=== PATIENT | male | born 1955 | race Caucasian/White ===

== ENCOUNTER 2020-01-04 09:03 | Outpatient (CLI) | payer MEDICARE, MEDICAID, SELFPAY ==
[2020-01-04 09:51] LABS: Basophils Absolute Auto 0.1 K/mm3 (0.0-0.1); Basophils Percent Auto 0.6 % (0.2-1.2); Eosinophils Absolute Auto 0.1 K/mm3 (0-0.3); Eosinophils Percent Auto 0.6 % (0-4.4); Hematocrit 51.4 % (42.0-52.0); Hemoglobin 16.8 g/dL (14.0-18.0); Immature Granulocyte Absolute 0.03 K/mm3 (0.00-0.031); Immature Granulocyte Percent A 0.2 % (0-0.5); Lymphocytes Absolute Auto 1.69 K/mm3 (0.9-3.2); Lymphocytes Percent Auto 13.9 % (18.3-44.2); Mean Corpuscular HGB Conc 32.7 g/dl (32-36); Mean Corpuscular Hemoglobin 30.1 pg (26-34); Mean Corpuscular Volume 91.9 fl (80-100); Mean Platelet Volume 11.3 fl (7.4-10.4); Monocytes Absolute Auto 0.9 K/mm3 (0.1-0.6); Monocytes Percent Auto 7.1 % (2.6-8.5); Neutrophils Absolute Auto 9.4 K/mm3 (1.3-6.7); Neutrophils Percent Auto 77.6 % (45.5-73.1); Platelet Count Result 270 k/mm3 (150-375); Red Blood Count 5.59 M/mm3 (4.6-6.20); Red Cell Distribution Width 13.5 % (11.5-14.5); White Blood Count 12.2 K/mm3 (4.5-10.0)
[2020-01-07 14:20] LABS: Testosterone Free 185.4 pg/mL (35.0-155.0); Testosterone Total 1212 ng/dL (250-1100)
== END 2020-01-04 09:04 | disposition home or self-care (01) ==
PROVIDERS: PCP Internal Medicine; Visit Provider Internal Medicine
DX: Z51.81 Encounter for therapeutic drug level monitoring (principal); Z79.899 Other long term (current) drug therapy
CPT/HCPCS: 36415; 84402; 84403; 85025

== ENCOUNTER 2020-01-12 05:42 | Observation (INO) | payer MEDICARE, MEDICAID, SELFPAY ==
[2020-01-12] VITALS (8 sets, daily range): BP systolic 127–177; BP diastolic 62–86; PULSE 64–95; RESP 16–20; TEMP 36.3–38.1; O2SAT 95–97; BMI 30.7
--- NOTE | ~2020-01-12 | XR_ITS ---
EXAMINATION: XR hand LT 2V DATE: 01/12/2020 06:09 INDICATION: Left hand and wrist swelling. Fall. TECHNIQUE: 3 views of left hand were obtained. COMPARISON: None. FINDINGS: Bone alignment is normal. No fracture. There is moderate osteoarthritis of triscaphe joint and severe osteoarthritis of first carpometacarpal joint. There is mild osteoarthritis of first, seco nd, and third metacarpophalangeal joints, third proximal interphalangeal joint, and second through fi fth distal interphalangeal joints. IMPRESSION: 1. Polyarticular osteoarthritis. Reviewed, dictated and finalized at location A.
--- NOTE | ~2020-01-12 | XR_ITS ---
EXAMINATION: XR chest 2V DATE: 01/12/2020 10:18 INDICATION: Fever. TECHNIQUE: Frontal and lateral views of the chest were obtained. COMPARISON: Chest 2 views 08/19/2018, chest CT 06/26/2019 FINDINGS: The chest demonstrates clear lungs without pneumonia, pleural effusion, or pneumothorax. Th e heart size is normal. Epidural electrodes overlie thoracic spine. There is mild chronic anterior we dging of multiple mid thoracic vertebral bodies. IMPRESSION: 1. No acute cardiopulmonary disease. Reviewed, dictated and finalized at location A.
--- NOTE | 2020-01-12 06:45 | ED.UPPEXIN ---
HPI - Extremity Injury (Upper) General Chief Complaint: Extremity Injury, Upper Stated Complaint: L hand pain Time Seen by Provider: 01/12/20 06:11 History of Present Illness HPI narrative: Patient is a 64-year-old male who presents ER with left wrist pain. 2 nights ago patient was walking when he tripped and caught himself during a fall. He grabbed/struck a handrail. Patient had no symptoms at that time. The next day he woke up and reports that he felt some mild discomfort in his left wrist with range of motion. Over the last 24 hours patient has had significant increase in pain and significant decrease in range of motion. No fevers or chills. No history of gout. Unsure if he has osteoarthritis, no history of gout. He has been taking oxycodone as well as his fentanyl patch without relief of his pain. Has not tried any anti-inflammatory medication. Patient reports some tingling in his fingers but no overt numbness Related Data Home Medications Medication Instructions Recorded Confirmed fentanyl 75 mcg/hr transdermal 1 patch TRANSDERM Q72H 07/20/19 01/12/20 patch cetirizine 10 mg tablet 10 mg PO DAILY PRN 01/11/20 01/12/20 naloxone [Narcan] INTRANASAL 01/12/20 oxycodone 10 mg PO QID 01/12/20 01/12/20 Allergies Allergy/AdvReac Type Severity Reaction Status Date / Time No Known Allergies Allergy Verified 01/12/20 07:50 Review of Systems Review of Systems: All systems reviewed & are unremarkable except as noted in HPI and below Constitutional: Constitutional: Denies chills, Denies fever(s) and Denies weakness Musculoskeletal: Musculoskeletal: Denies myalgias, Reports arthralgias and Reports joint swelling Integumentary/Breasts: Skin/Breast: Denies pruritus and Denies erythema Neurologic: Denies focal weakness, Denies numbness and Reports tingling PMFSH Past Medical History Medical History (Updated 01/12/20 @ 16:38 by Alex Grimm MD) Anemia COPD (chronic obstructive pulmonary disease) Depression Encounter for monitoring testosterone replacement therapy Erectile dysfunction Hyperlipidemia Hypertension Low testosterone in male Pseudogout of left wrist Septic arthritis of wrist, left Swelling of joint, wrist, left Surgical History Surgical History H/O foot surgery H/O neck surgery H/O shoulder surgery History of back surgery S/P foot surgery, right Family History Family History (Updated 01/12/20 @ 15:04 by Cely Vallejo NP) Grandparent Diabetes mellitus Sibling Family history of cardiovascular disease Mother Family history of primary malignant neoplasm of liver Alcoholism Father Alcoholism Other Family history of alcoholism Family history of attention deficit hyperactivity disorder (ADHD) Family history of rheumatoid arthritis Hypertension Social History Social History (Updated 01/12/20 @ 15:06 by Cely Vallejo NP) Social History: The patient stated that he lives with his . He desires to be a full code. His is his durable power attorney at law for healthcare. Patient is on disability for his neck and his back. He has 2 children. Patient used to drink heavily but no longer drinks. Patient still continues to smoke a pack a cigarettes a day for the last 40 years. He stated that he does have a nicotine patch on at this time. Smoking packs per day: 1 Smoking cigarettes per day: 20.0 Years smoked: 40 Smoking pack-years: 40.00 Smoking status: Heavy tobacco smoker Tobacco type: cigarettes Second hand tobacco smoke exposure: Yes Alcohol intake: never Substance use: never Substance use type: does not use Living arrangements: with family Occupation/Education: other Gender identity (if verbalized by the patient): Male Spiritual care concerns: No Agree to blood products: Yes Exam Narrative: Exam Narrative: GENERAL: Uncomfortable-appearing, well-nourished, and in no acute
[2020-01-12] MEDS: MORPHINE SULFATE 4 MG/ML INJ IV PUSH ×2 (06:49→15:49)
[2020-01-12 06:53] LABS: Basophils Percent Auto 0.3 % (0.2-1.2); Eosinophils Percent Auto 0.2 % (0-4.4); Hematocrit 46.1 % (42.0-52.0); Hemoglobin 15.1 g/dL (14.0-18.0); Immature Granulocyte Absolute 0.04 K/mm3 (0.00-0.031); Immature Granulocyte Percent A 0.3 % (0-0.5); Lymphocytes Absolute Auto 0.93 K/mm3 (0.9-3.2); Lymphocytes Percent Auto 7.2 % (18.3-44.2); Mean Corpuscular HGB Conc 32.8 g/dl (32-36); Mean Corpuscular Hemoglobin 30.1 pg (26-34); Mean Platelet Volume 10.8 fl (7.4-10.4); Monocytes Absolute Auto 1.1 K/mm3 (0.1-0.6); Monocytes Percent Auto 8.6 % (2.6-8.5); Neutrophils Absolute Auto 10.8 K/mm3 (1.3-6.7); Neutrophils Percent Auto 83.4 % (45.5-73.1); Platelet Count Result 250 k/mm3 (150-375); Red Blood Count 5.01 M/mm3 (4.6-6.20); Red Cell Distribution Width 13.8 % (11.5-14.5); White Blood Count 12.9 K/mm3 (4.5-10.0)
[2020-01-12 07:07] LABS: Blood Urea Nitrogen 17 mg/dL (9-20); CRP 8.7 mg/dL (<1.0); Calcium 8.8 mg/dL (8.4-10.2); Carbon Dioxide 28 mmol/L (22-30); Chloride 100 mmol/L (98-107); Estimated Glomerular Filt Rate > 60; Glucose 116 mg/dL (75-110); Potassium 4.2 mmol/L (3.4-5.0); Sodium 134 mmol/L (137-145); Uric Acid 3.4 mg/dL (3.5-8.5)
[2020-01-12 07:37] LABS: Erythrocyte Sedimentation Rate 21 mm/hr (0-20)
--- NOTE | 2020-01-12 07:48 | PC.NURSE ---
EDP in room for procedure to drain joint (left wrist). Time out performed, patient consented, EDP performed procedure and patient tolerated well.
[2020-01-12 08:14] LABS: Source Synovial Fluid Synovial fluid
[2020-01-12 08:15] LABS: Appearance Synovial Fluid Turbid (Clear); Color Synovial Fluid Brown (Colorless); Lymphocytes Synovial Fluid 12 %; Neutrophils Synovial Fluid 88 % (0-25)
[2020-01-12] MEDS: KETOROLAC 30 MG/ML VIAL (*BKC) IV PUSH (09:58)
--- NOTE | 2020-01-12 11:44 | ADMGEN ---
This patient, Valentin Navarro, was admitted to 3 [facility] Room 301-01. Patient/family oriented to hospital policies and general routines including ID bracelet, bed and alarms, visiting hours, pain management, procedures, bathroom and other care routines, personal items, smoking policy, room service/diet, and visiting hours. Valuables list has been completed. Information on how to activate the Rapid Response Team has been discussed. Patient/Family are encouraged to report perceived risks to care and to ask questions if they do not understand what they are told or what they should do.
--- NOTE | 2020-01-12 14:45 | PM.CNOR ---
Assessment and Plan Assessment and plan (1) Pseudogout of left wrist: Code(s): M11.232 - Other chondrocalcinosis, left wrist Status: Acute Assessment and Plan: New patient evaluation for chief complaint Left wrist pain and swelling. History, physical exam and radiographs reviewed with the patient. emergency room findings and wrist aspirate reviewed. Discussed the condition, nature, etiology and course of natural history with the patient. Treatment options including surgical and nonoperative treatment were reviewed. Risks and benefits of each as well as alternatives reviewed. The patient's questions were answered. Conservative treatment ice, compression and elevation. Patient states better with conservative treatment at this time. Aspiration shows pseudogout crystals. Concern for occult infection. Agree with 23 hour observation and intravenous antibiotics. If patient improved will consider discharge home with continued conservative treatment. If patient show signs of worsening may consider MRI of the wrist and possible debridement. Will continue to follow. (2) Swelling of joint, wrist, left: Code(s): M25.432 - Effusion, left wrist Status: Acute (3) Septic arthritis of wrist, left: Code(s): M00.9 - Pyogenic arthritis, unspecified Status: Acute Assessment and Plan: Continue observation at this time. History of Present Illness HPI Consult date: 01/12/20 Requesting physician: Corby Mayberry MD Consult reason: other ( left wrist pain and swelling) Chief complaint: pseudogout/possible septic joint Narrative: 64-year-old gentleman presented to the emergency room this morning with 2 day history of increasing pain and swelling left wrist and hand. Patient fell hitting the left hand and wrist against support. Injury occurred 2 days ago. Subsequently he has developed increased pain and swelling and redness. Feels like he has low-grade fever. Pain with motion of the hand and use of the wrist. Denies nausea vomiting. Occasionally has aches and pains the left wrist but nothing to this degree. No prior injury noted. Patient evaluated in the emergency room and aspiration left wrist performed. Pseudo Gout noted on aspiration. Fever and elevated CRP noted. Patient was placed into an immobilization splint and started on IV antibiotics. I was asked to see the patient evaluate his wrist and hand. Review of Systems Constitutional: Constitutional: Denies fever(s) Eyes: Eyes: Denies blurry vision ENT: Reports Normal hearing present Cardiovascular: Cardiovascular: Denies chest pain and Denies dyspnea Respiratory: Respiratory: Denies dyspnea and Denies wheezing Gastrointestinal: Gastrointestinal: Denies abdominal pain Genitourinary: Genitourinary: Denies urinary urgency Musculoskeletal: Musculoskeletal: Reports as per HPI and Denies numbness Integumentary/Breasts: Skin/Breast: Denies changing lesions and Denies sores Neurologic: Reports Normal hearing present, Denies behavioral changes, Denies confusion, Denies numbness and Denies convulsions Psychiatric: Psychiatric: Denies behavioral changes, Denies confusion and Denies hallucinations Endocrine: Endocrine: Denies heat intolerance Hematologic/Lymphatic: Hematologic/Lymphatic: Denies easy bleeding Allergic/Immunologic: Allergic/Immunologic: Denies wheezing PMFSH Past Medical History Medical History Anemia Depression Encounter for monitoring testosterone replacement therapy Erectile dysfunction Hypertension Low testosterone in male Surgical History Surgical History H/O foot surgery H/O neck surgery H/O shoulder surgery History of back surgery S/P foot surgery, right Family History Family History Grandparent Diabetes mellitus Sibling Family hist
--- NOTE | 2020-01-12 14:53 | PM.IMHP ---
H&P: HPI History of Present Illness Chief complaint: pseudogout/possible septic joint Narrative: Valentin Navarro is a 64 year old male who has chronic neck and back pain. He has been doing telemedicine this month. He typically uses fentanyl patches. The patient has been having some swelling and pain to his left wrist approximately the last 2 days. The patient stated that he did fall and hit his hand on summary lying. He said that he had pain from his fingertips to his elbow. The pain medication was not helping. The patient had increased pain over the last 24 hours. He has no prior history of any osteoarthritis or gout. His swelling to his fingertips. A soft wrap was placed to the left fore arm as protection. Fluid was aspirated from the left wrist today in the emergency room. And sent for cytology. Patient was given a dose of Zosyn. Orthopedic surgeon was consulted treatment options include surgical and non operative treatment. Conservative treatment includes ice, compression, elevation. Patient stated that he is feeling better since he had fluid aspirated from his wrist. Patient denies any fever or chills. He does feel more tired than normal. White count is noted to be 12.9. From the left wrist came back as turbid and moderate synovial crystals. Chest x-ray read as nothing acute. Polyarticular arthritis osteoarthritis on x-ray of left wrist.Toradol in the emergency room. Date of service 01/12/2020 Review of Systems Review of Systems: All systems reviewed & are unremarkable except as noted in HPI and below Constitutional: Constitutional: Reports as per HPI and Reports no additional constitutional complaints Eyes: Eyes: Reports as per HPI and Reports no additional eye complaints ENT: Reports system reviewed and no additional complaints, except as documented and Reports Normal hearing present Cardiovascular: Cardiovascular: Reports no additional cardiovascular complaints Respiratory: Respiratory: Reports no additional respiratory complaints and Reports no additional respiratory complaints Gastrointestinal: Gastrointestinal: Reports as per HPI and Reports no additional gastrointestinal complaints Musculoskeletal: Musculoskeletal: Reports no additional musculoskeletal complaints Integumentary/Breasts: Skin/Breast: Reports system reviewed and no additional complaints, except as docu and Reports as per HPI Neurologic: Reports system reviewed and no additional complaints, except as documented, Reports as per HPI and Reports Normal hearing present Psychiatric: Psychiatric: Reports no additional psychiatric complaints and Reports as per HPI Endocrine: Endocrine: Reports no additional endocrine complaints Hematologic/Lymphatic: Hematologic/Lymphatic: Reports no additional hematologic/lymphatic complaints Allergic/Immunologic: Allergic/Immunologic: Reports no additional allergic/immunologic complaints PMFSH Past Medical History Medical History (Updated 01/12/20 @ 15:02 by Cely Vallejo NP) Anemia COPD (chronic obstructive pulmonary disease) Depression Encounter for monitoring testosterone replacement therapy Erectile dysfunction Hyperlipidemia Hypertension Low testosterone in male Pseudogout of left wrist Septic arthritis of wrist, left Swelling of joint, wrist, left Surgical History Surgical History H/O foot surgery H/O neck surgery H/O shoulder surgery History of back surgery S/P foot surgery, right Family History Family History (Updated 01/12/20 @ 15:04 by Cely Valleoj NP) Grandparent Diabetes mellitus Sibling Family history of cardiovascular disease Mother Family history of primary malignant neoplasm of liver Alcoholism Father Alcoholism Other Family history of alcoholism Family history of attention deficit hyperactivity disorder (ADHD) Family history of rheumatoid arthritis Hypertension Social History Social History (Updat
--- NOTE | 2020-01-12 15:56 | PCRCNOTE ---
1530 - Went in to give pt Albuterol MDI, pt states he takes PRN at home when he smoke too much. He doesn't want inhaler at this time.
[2020-01-12] MEDS: COLCHICINE 0.6 MG TABLET 1.2 MG PO (19:41)
[2020-01-12] MEDS: COLCHICINE 0.6 MG TABLET PO (21:28)
[2020-01-13] MEDS: MORPHINE SULFATE 4 MG/ML INJ IV PUSH (05:00)
[2020-01-13 06:00] VITALS: BP 165/62; PULSE 71; RESP 18; TEMP 36.8; O2SAT 97
[2020-01-13 06:10] LABS: Basophils Absolute Auto 0.1 K/mm3 (0.0-0.1); Basophils Percent Auto 0.7 % (0.2-1.2); Eosinophils Absolute Auto 0.2 K/mm3 (0-0.3); Eosinophils Percent Auto 1.7 % (0-4.4); Hematocrit 45.2 % (42.0-52.0); Hemoglobin 14.4 g/dL (14.0-18.0); Immature Granulocyte Absolute 0.03 K/mm3 (0.00-0.031); Immature Granulocyte Percent A 0.3 % (0-0.5); Lymphocytes Absolute Auto 1.96 K/mm3 (0.9-3.2); Mean Corpuscular HGB Conc 31.9 g/dl (32-36); Mean Corpuscular Hemoglobin 29.6 pg (26-34); Mean Corpuscular Volume 92.8 fl (80-100); Mean Platelet Volume 11.3 fl (7.4-10.4); Monocytes Absolute Auto 1.1 K/mm3 (0.1-0.6); Monocytes Percent Auto 11.1 % (2.6-8.5); Neutrophils Absolute Auto 6.5 K/mm3 (1.3-6.7); Neutrophils Percent Auto 66.2 % (45.5-73.1); Platelet Count Result 261 k/mm3 (150-375); Red Blood Count 4.87 M/mm3 (4.6-6.20); Red Cell Distribution Width 13.8 % (11.5-14.5); White Blood Count 9.8 K/mm3 (4.5-10.0)
[2020-01-13 06:12] LABS: Alanine Aminotransferase 16 U/L (4-50); Albumin Level 3.8 g/dL (3.5-5.1); Alkaline Phosphatase 58 U/L (38-126); Aspartate Amino Transferase 28 U/L (17-59); Bilirubin,Total 0.7 mg/dL (0.2-1.3); Blood Urea Nitrogen 15 mg/dL (9-20); Calcium 8.5 mg/dL (8.4-10.2); Carbon Dioxide 30 mmol/L (22-30); Chloride 102 mmol/L (98-107); Estimated CRCL calculation 78 ml/min; Estimated Glomerular Filt Rate > 60; Glucose 97 mg/dL (75-110); Magnesium 2.3 mg/dL (1.6-2.3); Sodium 136 mmol/L (137-145)
[2020-01-13] MEDS: DULOXETINE 60 MG CAPSULE.DR PO (09:01)
[2020-01-13] MEDS: lisinopriL 10 MG TABLET PO (09:01)
[2020-01-13] MEDS: SIMVASTATIN 20 MG TABLET PO (09:01)
--- NOTE | 2020-01-13 11:25 | PM.PNORT ---
Progress Note: A&P Assessment and Plan (1) Pseudogout: Code(s): M11.20 - Other chondrocalcinosis, unspecified site Status: Acute Assessment and Plan: Left wrist inflammation. Better after aspiration and anti-inflammatories. No signs of infection. No fever, white count improved. Discussed use of splint. May remove splint at home to shower. May reapply and use Asad wrap. Continue with limited use of wrist and hand. Discussed use of anti-inflammatories with ibuprofen. Follow up in orthopedic office next week. Okay for discharge. Subjective Subjective Date/Time Seen: 01/13/20 11:25 Patient states left wrist pain improved. Much better than yesterday. No complaints of fever or chills. No nausea or vomiting. Exam Const: General: healthy appearing; No in distress or confusion Orientation/consciousness: oriented to person, oriented to place, oriented to time and No confusion HENMT: Head: normal to inspection, normocephalic and atraumatic Eyes: Conjunctivae: conjunctivae normal Sclera: sclerae normal Neck: Neck: supple and nontender Resp: Effort & Inspection: normal respiratory effort and no audible wheezes Cardio: Rate: regular rate Rhythm: regular rhythm Skin: General skin exam: no rashes or lesions noted Neuro: General: oriented to person, oriented to place, oriented to time and No confusion Extrem: Right upper extremity: normal to inspection Left upper extremity: shoulder/upper arm, elbow/forearm, wrist and hand Other: Right upper extremity: normal to inspection Left upper extremity: shoulder/upper arm no tenderness and no swelling, elbow/forearm no tenderness and no swelling, wrist tenderness of the distal radius, swelling of the dorsal wrist (moderate), abnormal ROM (decreased secondary to injury) pain with active ROM with extension and with flexion and pain with passive ROM in extension and in flexion and radial pulse present 2+ and hand normal capillary refill, neuromotor exam normal, neurosensory exam normal Details: radial nerve sensory function normal, ulnar nerve sensory function normal, median nerve sensory function normal and digital nerve sensory function normal, vascular exam normal capillary refill and abnormal ROM of finger (able to make 75% of fist) pain with active ROM Psych: Affect: normal affect Objective Data Vital Signs Vital Signs: Vital Signs - 24 hr 01/12/20 14:00 01/12/20 22:00 01/13/20 06:00 Temperature 98.5 F 98.1 F 98.3 F Pulse Rate 73 64 71 Respiratory Rate 16 18 18 Blood Pressure 143/64 H 127/62 165/62 H Pulse Oximetry 95 97 97 Intake/Output Intake/Output: Intake & Output 01/10/20 01/11/20 01/12/20 01/13/20 23:59 23:59 23:59 23:59 Intake Total 490 350 Output Total 1300 Balance 490 -950 Meds/Results Medications: Active Medications Generic Name Dose Route Start Last Admin Trade Name Freq PRN Reason Stop Dose Admin Acetaminophen 650 mg 01/12/20 09:58 Tylenol Tablet PO Q4H PRN Mild Pain (1-3) or Fever Albuterol 1 puff 01/12/20 19:12 Proventil Hfa INHALATION Q4HRT PRN Shortness Of Breath Duloxetine HCl 60 mg 01/13/20 09:00 01/13/20 09:01 Cymbalta PO 60 mg DAILY GAGAN Administration Fentanyl 75 mcg 01/13/20 09:00 Duragesic 75 Mcg Patch TRANSDERM Q72H GAGAN Piperacillin/Tazobactam/Dextrose 3.375 gm in 50 mls @ 100 mls/hr 01/12/20 18:00 01/13/20 06:19 Zosyn 3.375 Gm/D5w 50ml Pm IVPB Infused Q6HR GAGAN Infusion Lisinopril 10 mg 01/13/20 09:00 01/13/20 09:01 Prinivil PO 10 mg DAILY GAGAN Administration Loratadine 10 mg 01/12/20 15:10 Claritin PO DAILY PRN Allergy Symptoms Morphine Sulfate 4 mg 01/12/20 09:58 01/13/20 05:00 Morphine Sulfate Inj IV PUSH 4 mg Q2H PRN Administration Pain Rated 7-10 Ondansetron HCl 4 mg 01/12/20 09:58 Zofran Inj IV PUSH Q4H PRN Nausea Oxycodone HCl 10 mg 01/12/20 17:00 01/13/20 09:
--- NOTE | 2020-01-13 12:32 | PM.DS ---
DS: Diagnosis Admitting Diagnosis Admitting Diagnosis: Other chondrocalcinosis, left wrist Discharge Diagnosis (1) Pseudogout of left wrist: Code(s): M11.232 - Other chondrocalcinosis, left wrist Status: Acute Assessment and Plan: Received colchicine while hospitalized Continue with ibuprofen as outpatient Wear splint and keep wrist elevated (2) COPD (chronic obstructive pulmonary disease): Qualifiers: COPD type: unspecified COPD Qualified Code(s): J44.9 - Chronic obstructive pulmonary disease, unspecified Code(s): J44.9 - Chronic obstructive pulmonary disease, unspecified Status: Chronic Assessment and Plan: Continue With albuterol inhaler. (3) Hyperlipidemia: Qualifiers: Hyperlipidemia type: unspecified Qualified Code(s): E78.5 - Hyperlipidemia, unspecified Code(s): E78.5 - Hyperlipidemia, unspecified Status: Chronic Assessment and Plan: Continue with simvastatin. (4) Hypertension: Qualifiers: Hypertension type: unspecified Qualified Code(s): I10 - Essential (primary) hypertension Code(s): I10 - Essential (primary) hypertension Status: Acute Assessment and Plan: Continue with lisinopril monitor BMP. (5) Depression: Qualifiers: Depression Type: unspecified Qualified Code(s): F32.9 - Major depressive disorder, single episode, unspecified Code(s): F32.9 - Major depressive disorder, single episode, unspecified Status: Acute Assessment and Plan: Continue with Cymbalta. (6) Anemia: Qualifiers: Anemia type: unspecified type Qualified Code(s): D64.9 - Anemia, unspecified Code(s): D64.9 - Anemia, unspecified Status: Acute Assessment and Plan: Continue to monitor CBC H&H is within normal limits. DS: Summary Hospital Course Reason for hospitalization: Left wrist pain and swelling Hospital Course: Presented with progressive left wrist pain and swelling. Treated empirically with Zosyn IV. X-rays with polyarticular arthritis. Aspirate with crystals, few white cells, no bacteria. Improved after colchicine and anti inflammatory. Feeling much better on day of discharge. Wished to go home. Was seen by [facility]opedic design center consultant and cleared to be discharged. Time Spent with Patient Time attestation: Total time spent providing and/or coordinating discharge services: 33 min Exam Narrative: Exam Narrative: HEENT: EOMI, PERRL, pharyngeal mucosa pink and intact NECK: No JVD, adenopathy, or thyromegaly CHEST: Clear to auscultation. Normal effort. HEART: NL S1/S2, regular, no murmur ABDOMEN: BS+, soft, nontender, no mass, no bruits EXTREMITIES: No cyanosis, edema, or clubbing NEUROLOGIC: CN intact and symmetric to inspection. MUSCULOSKELETAL: Tone and strength symmetric. Left wrist splinted and wrapped PSYCH: Alert. Oriented to person, place, and time. DS: Data Data Completed and Pending Labs on day of discharge: Labs from last 24 hours 01/13/20 01/13/20 01/13/20 05:12 05:12 05:12 WBC 9.8 RBC 4.87 Hgb 14.4 Hct 45.2 MCV 92.8 MCH 29.6 MCHC 31.9 L RDW 13.8 Plt Count 261 MPV 11.3 H Immature Gran % (Auto) 0.3 Neut % (Auto) 66.2 Lymph % (Auto) 20.0 Parmer % (Auto) 11.1 H Eos % (Auto) 1.7 Baso % (Auto) 0.7 Lymph # (Auto) 1.96 Parmer # (Auto) 1.1 H Eos # (Auto) 0.2 Baso # (Auto) 0.1 Abs Immat Gran (auto) 0.03 Absolute Neuts (auto) 6.5 Absolute Nucleated RBC 0.0 Nucleated RBC % 0.0 Sodium 136 L Potassium 4.0 Chloride 102 Carbon Dioxide 30 BUN 15 Creatinine 0.90 Estim Creat Clear Calc 78 Estimated GFR > 60 Glucose 97 Calcium 8.5 Magnesium 2.3 Total Bilirubin 0.7 AST 28 ALT 16 Alkaline Phosphatase 58 Total Protein 7.0 Albumin 3.8 TSH (Reflex) 1.450 Preliminary micro results at discharge 01/12/20 09:52
== END 2020-01-13 13:00 | disposition home or self-care (01) ==
LOC: ANHED 09:55 → ANH3MEDSUR 10:37
PROVIDERS: Nurse Practitioner; Admitting Provider Internal Medicine; Emergency Provider Emergency Medicine; PCP Internal Medicine; Visit Provider Internal Medicine
DX: M11.232 Other chondrocalcinosis, left wrist (principal); W01.198A Fall on same level from slipping, tripping and stumbling with subsequent striking against other object, initial encounter; J44.9 Chronic obstructive pulmonary disease, unspecified; F17.210 Nicotine dependence, cigarettes, uncomplicated; E78.5 Hyperlipidemia, unspecified; I10 Essential (primary) hypertension; F32.9 Major depressive disorder, single episode, unspecified; D64.9 Anemia, unspecified; Z79.899 Other long term (current) drug therapy
CPT/HCPCS: 20600; 29125; 36415; 71046; 73120; 80048; 80053; 83735; 84443; 84550; 85025; 85652; 86140; 87040; 87070; 87075; 87205; 88108; 89051; 89060; 96365; 96366; 96375; 96376; 99285; A9270; G0378; J1885; J2270; J2543

== ENCOUNTER 2020-02-03 14:17 | Outpatient (CLI) | payer MEDICARE, MEDICAID, SELFPAY ==
--- NOTE | ~2020-02-03 | XR_ITS ---
EXAMINATION:XR cervical spine min 6V DATE: 02/03/2020 14:47 INDICATION: Cervical radiculopathy TECHNIQUE: AP, lateral in neutral, flexion, extension, bilateral oblique, lateral swimmers and odonto id views of the cervical spine are provided. COMPARISON: None FINDINGS: Alignment is normal. No laxity is present with flexion or extension.The odontoid is intact. No fracture is identified. The vertebral body heights are normal. Interbody devices are present at C 5-6 and C6-7 with complete loss of C6-7 intervertebral disc space height. Prevertebral soft tissues are normal. There is severe bilateral uncovertebral joint osteoarthritis at C5-6 and severe facet ost eoarthritis on the left at C3-4. Mild facet osteoarthritis is seen throughout the remainder of the ce rvical spine. IMPRESSION: 1. Moderate cervical spondylosis without acute findings. Reviewed, dictated and finalized at location A.
--- NOTE | ~2020-02-03 | CT_ITS ---
EXAMINATION: CT cervical spine wo con DATE: 02/03/2020 15:07 INDICATION: Cervical radiculopathy. TECHNIQUE: Computed tomography (CT) of the cervical spine was performed without intravenous contrast. Automated exposure control and iterative reconstruction technique were employed. The dose-length pro duct was 475.23 mGy-cm. COMPARISON: Cervical spine radiographs 02/03/2020 FINDINGS: There is mild emphysema. There is 2 mm anterolisthesis of C4 on C5. There is hypolordosis o f cervical spine. There is 6 degrees levocurvature of cervical spine. There are changes of anterior f usion procedure at C5-C6 with interbody device, but no bridging bone. There are changes of anterior f usion procedure at C6-C7 with interbody device and healed interbody bone graft. Vertebral body height s are normal. There is mildly decreased disc height at C3-C4. There is heterotopic ossification of th e nuchal ligament at C2. The following disc levels are specifically discussed: C2-C3: There is mild right uncovertebral joint osteoarthritis. There is mild bilateral facet joint os teoarthritis. There is no neural foraminal stenosis. There is no central canal stenosis. C3-C4: There is mild right and moderate left uncovertebral joint osteoarthritis. There is moderate ri ght and severe left facet joint osteoarthritis. There is moderate left neural foraminal stenosis. The re is no central canal stenosis. C4-C5: There is mild right uncovertebral joint osteoarthritis. There is severe right and mild left fa cet joint osteoarthritis. There is mild right neural foraminal stenosis. There is no central canal st enosis. C5-C6: There is severe bilateral uncovertebral joint osteoarthritis. There is mild bilateral facet sameer int osteoarthritis. There is moderate right and mild left neural foraminal stenosis. There is mild ce ntral canal stenosis. C6-C7: There is mild bilateral uncovertebral joint hypertrophy. There is mild left facet joint osteoa rthritis. There is ankylosis of right facet joint with mild hypertrophy. There is mild right neural f oraminal stenosis. There is no central canal stenosis. C7-T1: There is no uncovertebral joint osteoarthritis. There is mild bilateral facet joint osteoarthr itis. There is no neural foraminal stenosis. There is no central canal stenosis. IMPRESSION: 1. Moderate cervical spondylosis. 2. Anterior fusion procedures at C5-C6 and C6-C7. No bridging bone at C5-C6. Reviewed, dictated and finalized at location E.
== END 2020-02-03 14:18 | disposition home or self-care (01) ==
PROVIDERS: PCP Internal Medicine; Visit Provider Physician Assistant Medical
DX: M47.22 Other spondylosis with radiculopathy, cervical region (principal); Z98.1 Arthrodesis status
CPT/HCPCS: 72052; 72125

== ENCOUNTER 2020-04-01 08:25 | Outpatient (CLI) | payer MEDICARE, MEDICAID, SELFPAY ==
[2020-04-01 08:45] LABS: Basophils Absolute Auto 0.1 K/mm3 (0.0-0.1); Basophils Percent Auto 0.6 % (0.2-1.2); Eosinophils Absolute Auto 0.1 K/mm3 (0-0.3); Eosinophils Percent Auto 0.8 % (0-4.4); Hematocrit 48.3 % (42.0-52.0); Hemoglobin 16.5 g/dL (14.0-18.0); Immature Granulocyte Absolute 0.02 K/mm3 (0.00-0.031); Immature Granulocyte Percent A 0.2 % (0-0.5); Lymphocytes Absolute Auto 1.89 K/mm3 (0.9-3.2); Lymphocytes Percent Auto 18.6 % (18.3-44.2); Mean Corpuscular HGB Conc 34.2 g/dl (32-36); Mean Corpuscular Hemoglobin 31.5 pg (26-34); Mean Corpuscular Volume 92.4 fl (80-100); Mean Platelet Volume 10.5 fl (7.4-10.4); Monocytes Percent Auto 9.4 % (2.6-8.5); Neutrophils Absolute Auto 7.2 K/mm3 (1.3-6.7); Neutrophils Percent Auto 70.4 % (45.5-73.1); Platelet Count Result 247 k/mm3 (150-375); Red Blood Count 5.23 M/mm3 (4.6-6.20); Red Cell Distribution Width 13.8 % (11.5-14.5); White Blood Count 10.2 K/mm3 (4.5-10.0)
[2020-04-01 09:03] LABS: Alanine Aminotransferase 25 U/L (4-50); Albumin Level 4.3 g/dL (3.5-5.1); Alkaline Phosphatase 64 U/L (38-126); Aspartate Amino Transferase 30 U/L (17-59); Bilirubin,Total 0.4 mg/dL (0.2-1.3); Blood Urea Nitrogen 20 mg/dL (9-20); Calcium 8.9 mg/dL (8.4-10.2); Carbon Dioxide 26 mmol/L (22-30); Chloride 103 mmol/L (98-107); Estimated Glomerular Filt Rate > 60; Glucose 111 mg/dL (75-110); Potassium 4.3 mmol/L (3.4-5.0); Sodium 136 mmol/L (137-145)
[2020-04-07 16:11] LABS: Testosterone Free 166.8 pg/mL (35.0-155.0); Testosterone Total 851 ng/dL (250-1100)
== END 2020-04-01 08:26 | disposition home or self-care (01) ==
PROVIDERS: Clinical Nurse Specialist; PCP Internal Medicine; Visit Provider Internal Medicine
DX: Z12.5 Encounter for screening for malignant neoplasm of prostate (principal); I10 Essential (primary) hypertension; Z79.890 Hormone replacement therapy
CPT/HCPCS: 36415; 80053; 84153; 84402; 84403; 85025; G0103

== ENCOUNTER 2021-02-10 07:43 | Outpatient (CLI) | payer MEDICARE, MEDICAID, SELFPAY ==
[2021-02-10 07:56] LABS: Basophils Absolute Auto 0.1 K/mm3 (0.0-0.1); Basophils Percent Auto 0.5 % (0.2-1.2); Eosinophils Absolute Auto 0.2 K/mm3 (0-0.3); Eosinophils Percent Auto 2.1 % (0-4.4); Hematocrit 46.6 % (42.0-52.0); Hemoglobin 15.8 g/dL (14.0-18.0); Immature Granulocyte Absolute 0.05 K/mm3 (0.00-0.031); Immature Granulocyte Percent A 0.5 % (0-0.5); Lymphocytes Absolute Auto 1.93 K/mm3 (0.9-3.2); Lymphocytes Percent Auto 17.9 % (18.3-44.2); Mean Corpuscular HGB Conc 33.9 g/dl (32-36); Mean Corpuscular Hemoglobin 31.8 pg (26-34); Mean Corpuscular Volume 93.8 fl (80-100); Mean Platelet Volume 10.7 fl (7.4-10.4); Neutrophils Absolute Auto 7.5 K/mm3 (1.3-6.7); Platelet Count Result 209 k/mm3 (150-375); Red Blood Count 4.97 M/mm3 (4.6-6.20); Red Cell Distribution Width 14.6 % (11.5-14.5); White Blood Count 10.8 K/mm3 (4.5-10.0)
[2021-02-10 08:08] LABS: Alanine Aminotransferase 24 U/L (4-50); Albumin Level 4.2 g/dL (3.5-5.1); Alkaline Phosphatase 51 U/L (38-126); Anion Gap 5 mmol/L (8-16); Aspartate Amino Transferase 33 U/L (17-59); Bilirubin,Total 0.6 mg/dL (0.2-1.3); Blood Urea Nitrogen 22 mg/dL (9-20); Calcium 9.4 mg/dL (8.4-10.2); Carbon Dioxide 29 mmol/L (22-30); Chloride 106 mmol/L (98-107); Estimated Glomerular Filt Rate > 60; Glucose 102 mg/dL (75-110); Potassium 3.9 mmol/L (3.4-5.0); Sodium 140 mmol/L (137-145)
[2021-02-10 08:38] LABS: Prostate Specific Antigen 1.1 ng/mL (< OR = 4.0)
[2021-02-15 11:04] LABS: Testosterone Free 322.6 pg/mL (35.0-155.0); Testosterone Total 1536 ng/dL (250-1100)
== END 2021-02-10 07:44 | disposition home or self-care (01) ==
PROVIDERS: PCP Internal Medicine; Visit Provider Internal Medicine
DX: Z12.5 Encounter for screening for malignant neoplasm of prostate (principal); I10 Essential (primary) hypertension; Z51.81 Encounter for therapeutic drug level monitoring; Z79.890 Hormone replacement therapy
CPT/HCPCS: 36415; 80053; 84153; 84402; 84403; 85025; G0103

== ENCOUNTER 2021-05-27 07:05 | Outpatient (CLI) | payer MEDICARE, MEDICAID, SELFPAY ==
[2021-05-27 07:48] LABS: Basophils Absolute Auto 0.1 K/mm3 (0.0-0.1); Basophils Percent Auto 0.5 % (0.2-1.2); Eosinophils Absolute Auto 0.2 K/mm3 (0-0.3); Eosinophils Percent Auto 1.8 % (0-4.4); Hematocrit 49.5 % (42.0-52.0); Hemoglobin 16.9 g/dL (14.0-18.0); Immature Granulocyte Absolute 0.02 K/mm3 (0.00-0.031); Immature Granulocyte Percent A 0.2 % (0-0.5); Lymphocytes Absolute Auto 1.97 K/mm3 (0.9-3.2); Lymphocytes Percent Auto 16.5 % (18.3-44.2); Mean Corpuscular HGB Conc 34.1 g/dl (32-36); Mean Corpuscular Hemoglobin 33.1 pg (26-34); Mean Corpuscular Volume 97.1 fl (80-100); Mean Platelet Volume 10.8 fl (7.4-10.4); Monocytes Percent Auto 8.7 % (2.6-8.5); Neutrophils Absolute Auto 8.6 K/mm3 (1.3-6.7); Neutrophils Percent Auto 72.3 % (45.5-73.1); Platelet Count Result 211 k/mm3 (150-375); Red Cell Distribution Width 13.4 % (11.5-14.5); White Blood Count 11.9 K/mm3 (4.5-10.0)
[2021-05-27 08:02] LABS: Alanine Aminotransferase 26 U/L (4-50); Albumin Level 4.6 g/dL (3.5-5.1); Alkaline Phosphatase 48 U/L (38-126); Anion Gap 9 mmol/L (8-16); Aspartate Amino Transferase 32 U/L (17-59); Bilirubin,Total 0.3 mg/dL (0.2-1.3); Blood Urea Nitrogen 25 mg/dL (9-20); Calcium 9.3 mg/dL (8.4-10.2); Carbon Dioxide 26 mmol/L (22-30); Chloride 105 mmol/L (98-107); Cholesterol 159 mg/dL (0-200); Estimated Glomerular Filt Rate > 60; Glucose 109 mg/dL (65-110); HDL Direct 38 mg/dL; Potassium 4.2 mmol/L (3.4-5.0); Sodium 140 mmol/L (137-145); Triglycerides 59 mg/dL (<150)
[2021-05-27 08:13] LABS: LDL Cholesterol Direct 95 mg/dL
[2021-06-01 17:38] LABS: Testosterone Free 122.9 pg/mL (35.0-155.0); Testosterone Total 723 ng/dL (250-1100)
== END 2021-05-27 07:06 | disposition home or self-care (01) ==
PROVIDERS: PCP Internal Medicine; Visit Provider Internal Medicine
DX: Z13.220 Encounter for screening for lipoid disorders (principal); I10 Essential (primary) hypertension; R79.89 Other specified abnormal findings of blood chemistry
CPT/HCPCS: 36415; 80053; 80061; 84402; 84403; 85025

== ENCOUNTER 2021-06-06 16:13 | Outpatient (CLI) | payer MEDICARE, MEDICAID, SELFPAY ==
[2021-06-06 16:59] LABS: Basophils Absolute Auto 0.1 K/mm3 (0.0-0.1); Basophils Percent Auto 0.6 % (0.2-1.2); Eosinophils Absolute Auto 0.2 K/mm3 (0-0.3); Eosinophils Percent Auto 1.9 % (0-4.4); Hematocrit 48.7 % (42.0-52.0); Hemoglobin 16.7 g/dL (14.0-18.0); Immature Granulocyte Absolute 0.02 K/mm3 (0.00-0.031); Immature Granulocyte Percent A 0.2 % (0-0.5); Lymphocytes Percent Auto 22.4 % (18.3-44.2); Mean Corpuscular HGB Conc 34.3 g/dl (32-36); Mean Corpuscular Hemoglobin 32.7 pg (26-34); Mean Corpuscular Volume 95.5 fl (80-100); Mean Platelet Volume 10.9 fl (7.4-10.4); Monocytes Absolute Auto 0.8 K/mm3 (0.1-0.6); Monocytes Percent Auto 8.7 % (2.6-8.5); Neutrophils Absolute Auto 6.2 K/mm3 (1.3-6.7); Neutrophils Percent Auto 66.2 % (45.5-73.1); Platelet Count Result 215 k/mm3 (150-375); Red Cell Distribution Width 13.2 % (11.5-14.5); White Blood Count 9.4 K/mm3 (4.5-10.0)
[2021-06-06 17:13] LABS: Alanine Aminotransferase 25 U/L (4-50); Albumin Level 4.5 g/dL (3.5-5.1); Alkaline Phosphatase 48 U/L (38-126); Anion Gap 6 mmol/L (8-16); Aspartate Amino Transferase 35 U/L (17-59); Bilirubin,Total 0.4 mg/dL (0.2-1.3); Blood Urea Nitrogen 20 mg/dL (9-20); Calcium 9.4 mg/dL (8.4-10.2); Carbon Dioxide 28 mmol/L (22-30); Chloride 105 mmol/L (98-107); Estimated Glomerular Filt Rate > 60; Glucose 100 mg/dL (65-110); Potassium 4.4 mmol/L (3.4-5.0); Sodium 139 mmol/L (137-145)
== END 2021-06-06 16:14 | disposition home or self-care (01) ==
LOC: ANHLAB 16:15
PROVIDERS: PCP Internal Medicine; Visit Provider Internal Medicine
DX: Z51.81 Encounter for therapeutic drug level monitoring (principal); Z79.890 Hormone replacement therapy; D72.829 Elevated white blood cell count, unspecified
CPT/HCPCS: 36415; 80053; 85025

== ENCOUNTER 2021-06-14 13:10 | Outpatient (CLI) | payer MEDICARE, MEDICAID, SELFPAY ==
--- NOTE | 2021-06-14 13:29 | ECHO_ITS ---
Patient Info Name: Valentin Navarro Age: 66 years : 1955 Gender: Male Ht: 68 in Wt: 180 lbs BSA: 2.00 m2 HR: 68 bpm BP: 141 / 68 mmHg Technical Quality: Fair Exam Date: 06/14/2021 1:37 PM Exam Location: [facility] Patient Status: Outpatient Admit Date: 06/14/2021 Staff Ordering Physician: eLandro Pardo DO Set Up Operator: Danna Welsh RDCS Attending Provider: Leandro Pardo DO Referring Physician: Edvin LOCKHART; Exam Type: CA echo doppler color flow Study Info Indications - cradiac murmur Complete two-dimensional, color flow and Doppler transthoracic echocardiogram is performed. Summary 1. Complete two-dimensional, color flow and Doppler transthoracic echocardiogram is performed. 2. Left ventricular chamber dimension is normal. 3. Left ventricular systolic function is normal, estimated at 60-65%. 4. The left ventricular diastolic function is grade I diastolic dysfunction. 5. E/e' 8 is minimally elevated. 6. Left atrial chamber dimension is mildly enlarged. 7. Right atrial chamber dimension is mildly enlarged. 8. There is trace tricuspid valve regurgitation. 9. No pulmonary hypertension, estimated pulmonary arterial systolic pressure is 34 mmHg. Left Ventricle E/e' 8 is minimally elevated. Left ventricular chamber dimension is normal. Left ventricular systolic function is normal, estimated at 60-65%. The left ventricular diastolic function is grade I diastolic dysfunction. Right Ventricle Right ventricular chamber dimension is normal. Right ventricular systolic function is normal. Left Atria Left atrial chamber dimension is mildly enlarged. Right Atria Right atrial chamber dimension is mildly enlarged. Aortic Valve The aortic valve is trileaflet. There is no aortic valve stenosis. There is mild aortic valve regurgitation. Pulmonic Valve There is no pulmonic regurgitation. Mitral Valve There is no mitral valve stenosis. There is no mitral valve regurgitation. Tricuspid Valve There is trace tricuspid valve regurgitation. No pulmonary hypertension, estimated pulmonary arterial systolic pressure is 34 mmHg. Pericardium/Pleural There is no pericardial effusion. Inferior Vena Cava Normal inferior vena cava with >50% collapse upon inspiration consistent with normal right atrial pressure, 5 mmHg. Aorta The aortic root size at the sinus of Valsalva is normal. Left Ventricular Outflow Tract Name Value Normal LVOT 2D LVOT Diameter 2.1 cm LVOT Doppler LVOT Peak Gradient 6 mmHg LVOT Mean Gradient 3 mmHg LVOT VTI 27 cm LVOT VTI/AV VTI Ratio 0.7 LVOT Stroke Volume 89 ml LVOT CO 17.6 l/min LVOT CI 8.8 l/min/m2 Pulmonic Valve Name Value Normal PV
== END 2021-06-14 13:11 | disposition home or self-care (01) ==
LOC: ANHCARD 13:12
PROVIDERS: PCP Internal Medicine; Visit Provider Internal Medicine
DX: R01.1 Cardiac murmur, unspecified (principal); I51.7 Cardiomegaly
CPT/HCPCS: 93306

== ENCOUNTER 2021-09-04 13:10 | Outpatient (CLI) | payer OTHER, SELFPAY ==
--- NOTE | ~2021-09-04 | CT_ITS ---
EXAMINATION: CTA abdomen DATE: 09/04/2021 13:44 INDICATION: Dissection of celiac axis. TECHNIQUE: Computed tomographic angiography (CTA) of the abdomen was performed without and with 100 m L Omnipaque-350 intravenous contrast. Automated exposure control and iterative reconstruction [employer] ue were employed. The dose-length product was 1051.71 mGy-cm. Maximum intensity projection 3D-reconst ructions of the aorta and other arteries were constructed by the technologist on a separate workstati on. COMPARISON: CT abdomen and pelvis 10/23/2016 FINDINGS: The visualized portions of the lung bases are clear without pneumonia or pleural effusion. The heart size is normal. There are coronary artery calcifications. No pericardial effusion. The live r, gallbladder, spleen, pancreas, adrenal glands, and right kidney are normal. There are cysts in lef t kidney measuring up to 10 mm. There are no dilated loops of bowel. The appendix is normal. There ar e no pathologically enlarged lymph nodes. There is no free intraperitoneal fluid. There is calcified atherosclerosis of the aorta and many of the other arteries. There is mild stenosis of the renal monica vesna and superior mesenteric artery. There is mild stenosis of celiac axis origin and common hepatic artery origin. There are intimal flaps in celiac axis and common hepatic artery. There is mild thorac ic spondylosis and moderate lumbar spondylosis. Epidural electrodes are noted in thoracic spine. IMPRESSION: 1. Intimal flaps in celiac axis and common hepatic artery. No significant arterial stenosis. Reviewed, dictated and finalized at location A. [employer] IMPRESSION: 1. Intimal flaps in celiac axis and common hepatic artery. No significant arter ial stenosis.
[2021-09-04 13:32] LABS: Estimated Glomerular Filt Rate > 60
== END 2021-09-04 13:11 | disposition home or self-care (01) ==
PROVIDERS: PCP Internal Medicine; Visit Provider Nurse Practitioner
DX: I77.79 Dissection of other specified artery (principal)
CPT/HCPCS: 74175; Q9967

== ENCOUNTER 2021-11-28 07:44 | Outpatient (CLI) | payer MEDICARE, SELFPAY ==
[2021-11-28 08:39] LABS: Basophils Absolute Auto 0.1 K/mm3 (0.0-0.1); Basophils Percent Auto 0.5 % (0.2-1.2); Eosinophils Percent Auto 0.2 % (0-4.4); Hematocrit 46.3 % (42.0-52.0); Immature Granulocyte Absolute 0.04 K/mm3 (0.00-0.031); Immature Granulocyte Percent A 0.3 % (0-0.5); Lymphocytes Absolute Auto 1.97 K/mm3 (0.9-3.2); Lymphocytes Percent Auto 16.3 % (18.3-44.2); Mean Corpuscular HGB Conc 34.6 g/dl (32-36); Mean Corpuscular Hemoglobin 32.5 pg (26-34); Mean Corpuscular Volume 93.9 fl (80-100); Mean Platelet Volume 10.6 fl (7.4-10.4); Monocytes Absolute Auto 0.7 K/mm3 (0.1-0.6); Monocytes Percent Auto 5.4 % (2.6-8.5); Neutrophils Absolute Auto 9.3 K/mm3 (1.3-6.7); Neutrophils Percent Auto 77.3 % (45.5-73.1); Platelet Count Result 351 k/mm3 (150-375); Red Blood Count 4.93 M/mm3 (4.6-6.20); Red Cell Distribution Width 12.5 % (11.5-14.5); White Blood Count 12.1 K/mm3 (4.5-10.0)
[2021-11-28 09:18] LABS: Prostate Specific Antigen 1.7 ng/mL (< OR = 4.0)
[2021-12-02 19:34] LABS: Testosterone Total 876 ng/dL (250-1100)
== END 2021-11-28 07:45 | disposition home or self-care (01) ==
PROVIDERS: PCP Internal Medicine; Visit Provider Internal Medicine
DX: Z51.81 Encounter for therapeutic drug level monitoring (principal); Z79.899 Other long term (current) drug therapy; D72.829 Elevated white blood cell count, unspecified; R79.89 Other specified abnormal findings of blood chemistry; Z12.5 Encounter for screening for malignant neoplasm of prostate
CPT/HCPCS: 36415; 84153; 84402; 84403; 85025; G0103

== ENCOUNTER 2021-12-13 10:55 | Outpatient (CLI) | payer MEDICARE, MEDICAID, SELFPAY ==
--- NOTE | 2021-12-18 11:56 | WPDHOLTEREM ---
Holter/Event Monitor Holter/Event Monitor Date of procedure: 12/13/21 Holter/Event Procedure: 48 Hr Holter Monitor Indications: Palpitations Conclusion: 1. 48 hour holter monitor on 12/13/21. 2. Predominant rhythm is sinus rhythm. HR range 38-115 bpm; average HR 68 bpm. HR at 38 bpm was at 03:53. 3. There are 280 premature supraventricular complexes and 7 supraventricular couplets and 4 supraventricular trigeminy. No supraventricular tachycardia. 4. There are 1,985 premature ventricular complexes, 64 ventricular couplets, 1 ventricular triplet. One 1 ventricular tachycardia at 190 bpm at 21:57 lasting 15 beats. One 4 beat idioventricular episode with variable HR between 50-120 bpm. 5. No sinoatrial or atrioventricular blocks. No significant pauses greater than 2 seconds. 6. No symptoms available for correlation.
== END 2021-12-13 10:56 | disposition home or self-care (01) ==
LOC: ANHCARD 10:56
PROVIDERS: PCP Internal Medicine; Visit Provider Internal Medicine
DX: R00.2 Palpitations (principal)
CPT/HCPCS: 93225; 93226

== ENCOUNTER 2021-12-13 11:47 | Emergency (ER) | payer MEDICARE, MEDICAID, SELFPAY ==
[2021-12-13] VITALS (34 sets, daily range): BP systolic 123–164; BP diastolic 51–79; PULSE 54–81; RESP 12–21; TEMP 36.2; O2SAT 91–98
[2021-12-13] MEDS: methylPREDNISolone SOD SUCC 125 MG VIAL IV PUSH (12:03)
[2021-12-13] MEDS: EPINEPHrine HCL INJ 1 MG/ML AMPUL 0.3 MG SUB-Q (12:03)
[2021-12-13] MEDS: FAMOTIDINE 20 MG/2 ML VIAL IV PUSH (12:04)
[2021-12-13] MEDS: SODIUM CHLORIDE 0.9% IV 1,000 ML 999 ML IV CONT (12:04)
[2021-12-13] MEDS: diphenhydrAMINE HCl INJ 50 MG/ML VIAL IV PUSH (12:04)
--- NOTE | 2021-12-13 12:11 | ED.ALLEREA ---
HPI - Allergic Reaction General Chief complaint: Allergic Reaction Stated complaint: lip swelling Time Seen by Provider: 12/13/21 11:57 History of Present Illness HPI narrative: 66-year-old male presents to the emergency room with acute onset of facial swelling. Patient states that occurred about an hour after taking his lisinopril. Patient denies shortness of breath difficulty breathing at this time. Related Data Home Medications Medication Instructions Recorded Confirmed Narcan 4 mg INTRANASAL PRN 01/12/20 12/04/21 oxycodone 10 mg tablet 10 mg PO Q8H tablet 06/05/21 12/04/21 calcium acetate 667 mg tablet 1,334 mg PO DAILY tablet 12/04/21 12/04/21 pregabalin 300 mg capsule 300 mg PO BID 12/04/21 12/04/21 Allergies Allergy/AdvReac Type Severity Reaction Status Date / Time lisinopril Allergy Swelling Verified 12/13/21 11:57 of Lip/Tongue/Throat Review of Systems Review of Systems: CONSTITUTIONAL: Denies fever, chills, or sweats. EYES: Denies visual changes, redness, or discharge. ENT: Denies rhinorrhea, congestion, sore throat, or otalgia. Reports facial swelling CARDIOVASCULAR: Denies chest pain, palpitations, or edema. RESPIRATORY: Denies cough or dyspnea. GASTROINTESTINAL: Denies abdominal pain, nausea, vomiting, or diarrhea. GENITOURINARY: Denies dysuria or hematuria. SKIN: Denies rash or itching. MUSCULOSKELETAL: Denies back pain, joint pain, or myalgia. NEUROLOGIC: Denies headache, numbness, dizziness, or weakness. PSYCHIATRIC: Denies anxiety or depression. [facility] Past Medical History Medical History Anemia Anxiety Arthritis Celiac artery dissection COPD (chronic obstructive pulmonary disease) Depression Encounter for monitoring testosterone replacement therapy Erectile dysfunction Hyperlipidemia Hypertension Low testosterone in male Pseudogout of left wrist Seasonal allergies Sleep apnea Swelling of joint, wrist, left Surgical History Surgical History H/O foot surgery 3 surgeries R foot, 2 surgeries L foot H/O neck surgery H/O shoulder surgery History of back surgery 07/07/2021 History of carpal tunnel release Right hand S/P foot surgery, right Family History Family History Grandparent Diabetes mellitus Sibling Family history of cardiovascular disease Mother Family history of primary malignant neoplasm of liver Alcoholism Father Alcoholism Other Arthritis Family history of alcoholism Family history of attention deficit hyperactivity disorder (ADHD) Family history of rheumatoid arthritis Hypertension Social History Social History Social History: The patient stated that he lives with his . He desires to be a full code. 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 Patient is on disability for his neck and his back. He has 2 children. Patient used to drink heavily but no longer drinks. Patient still continues to smoke a pack a cigarettes a day for the last 40 years. He stated that he does have a nicotine patch on at this time. Years smoked: 40 Smoking status: Current every day smoker Tobacco type: cigarettes Second hand tobacco smoke exposure: Yes Alcohol intake: never Substance use: never Substance use type: does not use Additional occupation/education comments: [employer], self employed Gender identity (if verbalized by the patient): Male Spiritual care concerns: No Agree to blood products: Yes Exam Narrative: GENERAL: Well-appearing, well-nourished, and in no acute distress. HEAD: Normocephalic, atraumatic. Angioedema noted to lips and face, left side greater than right EYES: PERRLA and EOMI. ENT: Nares clear, no rhinorrhea or epistaxis. Mucous membranes moist. NECK: Supple. No adenopathy
== END 2021-12-13 16:10 | disposition home or self-care (01) ==
PROVIDERS: Emergency Provider Nurse Practitioner Family; PCP Internal Medicine
DX: T78.3XXA Angioneurotic edema, initial encounter (principal); T46.4X5A Adverse effect of angiotensin-converting-enzyme inhibitors, initial encounter; F17.210 Nicotine dependence, cigarettes, uncomplicated; F41.9 Anxiety disorder, unspecified; M19.90 Unspecified osteoarthritis, unspecified site; J44.9 Chronic obstructive pulmonary disease, unspecified; E78.5 Hyperlipidemia, unspecified; I10 Essential (primary) hypertension; G47.30 Sleep apnea, unspecified
CPT/HCPCS: 93225; 93226; 96361; 96372; 96374; 96375; 99284; J0171; J1200; J2930; J7030

== ENCOUNTER 2022-02-19 08:51 | Outpatient (CLI) | payer MEDICARE, MEDICAID, SELFPAY ==
--- NOTE | 2022-02-19 | ECG_ITS ---
Measurements Intervals [place] Rate: 57 P: 70 HI: 220 QRS: -31 QRSD: 100 T: 35 QT: 355 QTc: 347 Interpretive Statements SINUS BRADYCARDIA WITH FIRST DEGREE AV BLOCK MARKED LEFT AXIS DEVIATION [QRS AXIS < -30] SEPTAL MYOCARDIAL INFARCTION , OF INDETERMINATE AGE [40+ ms Q WAVE IN V1/V2] ABNORMAL ECG NO PREVIOUS ECG AVAILABLE FOR COMPARISON Electronically Signed On 02-19-2022 10:27:23 CDT by Juan R Moess M.D.
== END 2022-02-19 08:52 | disposition home or self-care (01) ==
PROVIDERS: PCP Internal Medicine; Visit Provider Orthopaedic Surgery
DX: Z01.810 Encounter for preprocedural cardiovascular examination (principal); R94.31 Abnormal electrocardiogram [ECG] [EKG]
CPT/HCPCS: 93005

== ENCOUNTER 2022-04-19 08:06 | Outpatient (CLI) | payer MEDICARE, MEDICAID, SELFPAY ==
--- NOTE | ~2022-04-19 | XR_ITS ---
XR chest 2V 04/19/2022 08:45 Indication: Hemoptysis for 2 weeks Procedure: 2 view chest Comparison: 12/20/2007 Findings: Heart size normal. No focal air space disease, pulmonary edema, pleural effusion or suspect ed pneumothorax. There are multiple healed left rib fractures. There are spinal stimulator leads over lying the mid thoracic spine. Impression: 1: No acute cardiopulmonary disease. Reviewed, dictated and finalized at location A. Impression: 1: No acute cardiopulmonary disease.
[2022-04-19 08:40] LABS: Basophils Absolute Auto 0.1 K/mm3 (0.0-0.1); Basophils Percent Auto 0.7 % (0.2-1.2); Eosinophils Absolute Auto 0.1 K/mm3 (0-0.3); Eosinophils Percent Auto 0.7 % (0-4.4); Hematocrit 51.8 % (42.0-52.0); Hemoglobin 17.4 g/dL (14.0-18.0); Immature Granulocyte Absolute 0.03 K/mm3 (0.00-0.031); Immature Granulocyte Percent A 0.3 % (0-0.5); Lymphocytes Absolute Auto 1.74 K/mm3 (0.9-3.2); Lymphocytes Percent Auto 18.4 % (18.3-44.2); Mean Corpuscular HGB Conc 33.6 g/dl (32-36); Mean Corpuscular Volume 95.4 fl (80-100); Mean Platelet Volume 10.6 fl (7.4-10.4); Monocytes Absolute Auto 0.7 K/mm3 (0.1-0.6); Monocytes Percent Auto 7.3 % (2.6-8.5); Neutrophils Absolute Auto 6.8 K/mm3 (1.3-6.7); Neutrophils Percent Auto 72.6 % (45.5-73.1); Platelet Count Result 248 k/mm3 (150-375); Red Blood Count 5.43 M/mm3 (4.6-6.20); Red Cell Distribution Width 13.6 % (11.5-14.5); White Blood Count 9.4 K/mm3 (4.5-10.0)
[2022-04-19 09:00] LABS: Alanine Aminotransferase 23 U/L (6-50); Albumin Level 4.8 g/dL (3.5-5.1); Alkaline Phosphatase 57 U/L (38-126); Anion Gap 9 mmol/L (8-16); Aspartate Amino Transferase 37 U/L (17-59); Bilirubin,Total 0.6 mg/dL (0.2-1.3); Blood Urea Nitrogen 24 mg/dL (9-20); Calcium 9.2 mg/dL (8.4-10.2); Carbon Dioxide 29 mmol/L (22-30); Chloride 101 mmol/L (98-107); Estimated Glomerular Filt Rate > 60; Glucose 116 mg/dL (65-110); Potassium 4.2 mmol/L (3.4-5.0); Sodium 139 mmol/L (137-145)
[2022-04-23 17:13] LABS: Testosterone Free 65.9 pg/mL (35.0-155.0); Testosterone Total 461 ng/dL (250-1100)
== END 2022-04-19 08:07 | disposition home or self-care (01) ==
PROVIDERS: PCP Internal Medicine; Visit Provider Internal Medicine
DX: R04.2 Hemoptysis (principal); Z79.890 Hormone replacement therapy; Z51.81 Encounter for therapeutic drug level monitoring; Z12.5 Encounter for screening for malignant neoplasm of prostate
CPT/HCPCS: 36415; 71046; 80053; 84402; 84403; 85025

== ENCOUNTER 2022-10-26 15:03 | Outpatient (CLI) | payer MEDICARE, MEDICAID, SELFPAY ==
[2022-10-26 15:55] LABS: Basophils Absolute Auto 0.1 K/mm3 (0.0-0.1); Basophils Percent Auto 0.7 % (0.2-1.2); Eosinophils Absolute Auto 0.3 K/mm3 (0-0.3); Eosinophils Percent Auto 3.1 % (0-4.4); Hematocrit 49.4 % (42.0-52.0); Hemoglobin 16.6 g/dL (14.0-18.0); Immature Granulocyte Absolute 0.03 K/mm3 (0.00-0.031); Immature Granulocyte Percent A 0.3 % (0-0.5); Lymphocytes Percent Auto 30.1 % (18.3-44.2); Mean Corpuscular HGB Conc 33.6 g/dl (32-36); Mean Corpuscular Hemoglobin 32.4 pg (26-34); Mean Corpuscular Volume 96.3 fl (80-100); Mean Platelet Volume 9.9 fl (7.4-10.4); Monocytes Percent Auto 9.3 % (2.6-8.5); Neutrophils Absolute Auto 5.8 K/mm3 (1.3-6.7); Neutrophils Percent Auto 56.5 % (45.5-73.1); Platelet Count Result 296 k/mm3 (150-375); Red Blood Count 5.13 M/mm3 (4.6-6.20); White Blood Count 10.3 K/mm3 (4.5-10.0)
[2022-10-26 16:07] LABS: Alanine Aminotransferase 21 U/L (6-50); Albumin Level 4.7 g/dL (3.5-5.1); Alkaline Phosphatase 52 U/L (38-126); Anion Gap 4 mmol/L (8-16); Aspartate Amino Transferase 27 U/L (17-59); Bilirubin,Total 0.4 mg/dL (0.2-1.3); Blood Urea Nitrogen 24 mg/dL (9-20); Carbon Dioxide 29 mmol/L (22-30); Chloride 104 mmol/L (98-107); Cholesterol 175 mg/dL (0-200); Estimated Glomerular Filt Rate > 60; Glucose 93 mg/dL (65-110); HDL Direct 29 mg/dL; Potassium 3.8 mmol/L (3.4-5.0); Sodium 137 mmol/L (137-145); Triglycerides 105 mg/dL (<150)
[2022-10-26 16:18] LABS: LDL Cholesterol Direct 107 mg/dL
[2022-10-26 16:37] LABS: Prostate Specific Antigen 0.9 ng/mL (< OR = 4.0)
[2022-11-03 13:19] LABS: Testosterone Free 225.5 pg/mL (35.0-155.0); Testosterone Total 1260 ng/dL (250-1100)
== END 2022-10-26 15:04 | disposition home or self-care (01) ==
PROVIDERS: PCP Internal Medicine; Visit Provider Nurse Practitioner
DX: Z51.81 Encounter for therapeutic drug level monitoring (principal); Z13.29 Encounter for screening for other suspected endocrine disorder; Z13.220 Encounter for screening for lipoid disorders; E78.5 Hyperlipidemia, unspecified; Z12.5 Encounter for screening for malignant neoplasm of prostate; Z79.890 Hormone replacement therapy
CPT/HCPCS: 36415; 80053; 80061; 84153; 84402; 84403; 85025; G0103

== ENCOUNTER 2023-02-22 07:21 | Outpatient (CLI) | payer MEDICARE, MEDICAID, SELFPAY ==
[2023-03-02 12:33] LABS: Testosterone Free 385.8 pg/mL (35.0-155.0); Testosterone Total 1621 ng/dL (250-1100)
== END 2023-02-22 07:22 | disposition home or self-care (01) ==
LOC: ANHLAB 07:23
PROVIDERS: PCP Internal Medicine; Visit Provider Internal Medicine
DX: Z51.81 Encounter for therapeutic drug level monitoring (principal); Z79.890 Hormone replacement therapy
CPT/HCPCS: 36415; 84402; 84403

== ENCOUNTER 2023-03-29 14:07 | Outpatient (CLI) | payer MEDICARE, MEDICAID, SELFPAY ==
[2023-03-29 14:36] LABS: Hematocrit 50.8 % (42.0-52.0); Mean Corpuscular HGB Conc 33.5 g/dl (32-36); Mean Corpuscular Volume 95.7 fl (80-100); Mean Platelet Volume 9.9 fl (7.4-10.4); Platelet Count Result 267 k/mm3 (150-375); Red Blood Count 5.31 M/mm3 (4.6-6.20); Red Cell Distribution Width 13.9 % (11.5-14.5); White Blood Count 10.5 K/mm3 (4.5-10.0)
[2023-03-29 14:51] LABS: Alanine Aminotransferase 28 U/L (6-50); Albumin Level 4.7 g/dL (3.5-5.1); Alkaline Phosphatase 45 U/L (38-126); Anion Gap 7 mmol/L (8-16); Aspartate Amino Transferase 35 U/L (17-59); Bilirubin,Total 0.5 mg/dL (0.2-1.3); Blood Urea Nitrogen 25 mg/dL (9-20); Calcium 9.3 mg/dL (8.4-10.2); Carbon Dioxide 25 mmol/L (22-30); Chloride 104 mmol/L (98-107); Cholesterol 199 mg/dL (0-200); Estimated Glomerular Filt Rate > 60; Glucose 97 mg/dL (65-110); HDL Direct 40 mg/dL; Potassium 4.3 mmol/L (3.4-5.0); Sodium 136 mmol/L (137-145); Triglycerides 71 mg/dL (<150)
[2023-03-29 15:01] LABS: LDL Cholesterol Direct 129 mg/dL
[2023-03-29 15:20] LABS: Prostate Specific Antigen 1.4 ng/mL (< OR = 4.0)
[2023-04-03 10:41] LABS: Testosterone Free 293.9 pg/mL (35.0-155.0); Testosterone Total 1393 ng/dL (250-1100)
== END 2023-03-29 14:08 | disposition home or self-care (01) ==
PROVIDERS: PCP Internal Medicine; Visit Provider Internal Medicine
DX: D64.9 Anemia, unspecified (principal); I10 Essential (primary) hypertension; Z51.81 Encounter for therapeutic drug level monitoring; Z79.890 Hormone replacement therapy; E29.1 Testicular hypofunction; R79.89 Other specified abnormal findings of blood chemistry
CPT/HCPCS: 36415; 80053; 80061; 84153; 84402; 84403; 85027

== ENCOUNTER 2023-12-02 07:54 | Outpatient (CLI) | payer MEDICARE, MEDICAID, SELFPAY ==
--- NOTE | 2023-12-02 13:15 | P.PCNPFT_ITS ---
PFT Procedure Performed PFT Procedure Performed Spirometry with Pre/Post Bronchodilator Plethysmography (Lung Vol) Diffusing Cap (DLCO) Flow Vol Loop PFT Interpretation This is a pulmonary function test with pre and post-bronchodilator spirometry, plethysmography and diffusing capacity. The test was performed and results interpreted in accordance with the 2019 and 2005 ATS/ERS Task Force guidelines respectively using the Global Lung Function Initiative-2012 reference equations. Patient demonstrated good effort and cooperation. Reproducibility criteria were met. The quality of the pre bronchodilator spirometry maneuver was Grade A and post bronchodilator spirometry maneuver was Grade B. Findings: Spirometry: There is decreased maximal expiratory airflow at all lung volumes with concave expiratory flow tracing. The contour the inspiratory flow tracing is normal. The pre bronchodilator FVC see is 3.45 L, 87% predicted. The pre bronchodilator FEV1 is 1.81 L, 60% predicted. The pre bronchodilator FEV1: FVC ratio is 52%. The post bronchodilator FVC is 3.76 L, representing a 9% increase. The post bronchodilator FEV1 is 1.97 L, representing a 9% increase. The post bronchodilator FEV1: FVC ratio is 53%. Plethysmography: The total lung capacity is 6.97 L, 105% predicted. The func tional residual capacity is 4.43 L, 126% predicted. The residual volume is 3.21 L, 137% predicted. Diffusing capacity: The diffusing capacity unadjusted for hemoglobin and carboxyhemoglobin is 23.4, 93% predicted. The diffusing capacity adjusted for alveolar volume is 4.06, 100% predicted. Impression: There is a moderate obstructive abnormality. There is no significant improvement after inhaling a single dose of albuterol. The increase in residual volume to total lung volume ratio is consistent with hyperinflation from an obstructive abnormality. The diffusing capacity is normal. There are no prior studies for comparison
== END 2023-12-02 07:55 | disposition home or self-care (01) ==
LOC: ANHPFT 07:56
PROVIDERS: PCP Internal Medicine; Visit Provider Internal Medicine
DX: J44.9 Chronic obstructive pulmonary disease, unspecified (principal)
CPT/HCPCS: 94060; 94726; 94729

== ENCOUNTER 2024-05-25 08:17 | Outpatient (CLI) | payer MEDICARE, MEDICAID, SELFPAY ==
[2024-05-25 14:51] LABS: Chloride 97 mmol/L (98-107)
[2024-05-25 15:03] LABS: LDL Cholesterol Direct 127 mg/dL
[2024-05-25 15:16] LABS: Basophils Percent Auto 0.7 % (0.2-1.2); Eosinophils Absolute Auto 0.1 K/mm3 (0-0.3); Eosinophils Percent Auto 1.5 % (0-4.4); Hematocrit 45.3 % (42.0-52.0); Immature Granulocyte Absolute 0.02 K/mm3 (0.00-0.031); Immature Granulocyte Percent A 0.3 % (0-0.5); Lymphocytes Absolute Auto 1.45 K/mm3 (0.9-3.2); Lymphocytes Percent Auto 24.4 % (18.3-44.2); Mean Corpuscular HGB Conc 33.1 g/dl (32-36); Mean Corpuscular Hemoglobin 32.8 pg (26-34); Mean Corpuscular Volume 99.1 fl (80-100); Mean Platelet Volume 10.6 fl (7.4-10.4); Monocytes Absolute Auto 0.7 K/mm3 (0.1-0.6); Monocytes Percent Auto 11.4 % (2.6-8.5); Neutrophils Absolute Auto 3.7 K/mm3 (1.3-6.7); Neutrophils Percent Auto 61.7 % (45.5-73.1); Platelet Count Result 245 k/mm3 (150-375); Red Blood Count 4.57 M/mm3 (4.6-6.20); Red Cell Distribution Width 12.5 % (11.5-14.5); White Blood Count 5.9 K/mm3 (4.5-10.0)
[2024-05-25 15:23] LABS: Prostate Specific Antigen 0.7 ng/mL (< OR = 4.0)
[2024-05-25 15:50] LABS: Alanine Aminotransferase 59 U/L (6-50); Albumin Level 4.7 g/dL (3.5-5.1); Alkaline Phosphatase 57 U/L (38-126); Anion Gap 10 mmol/L (4-12); Aspartate Amino Transferase 70 U/L (17-59); Bilirubin,Total 0.6 mg/dL (0.2-1.3); Blood Urea Nitrogen 20 mg/dL (9-20); Calcium 9.7 mg/dL (8.4-10.2); Carbon Dioxide 30 mmol/L (22-30); Cholesterol 203 mg/dL (0-200); Estimated Glomerular Filt Rate > 60; Glucose 96 mg/dL (65-110); HDL Direct 41 mg/dL; Potassium 4.3 mmol/L (3.4-5.0); Sodium 137 mmol/L (137-145); Triglycerides 93 mg/dL (<150)
[2024-06-03 16:29] LABS: Apolipoprotein B 116 mg/dL
== END 2024-05-25 08:18 | disposition home or self-care (01) ==
PROVIDERS: PCP Internal Medicine; Visit Provider Internal Medicine
DX: Z12.5 Encounter for screening for malignant neoplasm of prostate (principal); E78.5 Hyperlipidemia, unspecified; I10 Essential (primary) hypertension; I73.9 Peripheral vascular disease, unspecified; J45.40 Moderate persistent asthma, uncomplicated; N52.9 Male erectile dysfunction, unspecified
CPT/HCPCS: 36415; 80053; 80061; 82172; 84153; 85025; G0103

== ENCOUNTER 2024-06-15 08:11 | Outpatient (CLI) | payer MEDICARE, MEDICAID, SELFPAY ==
[2024-06-15 13:45] LABS: Alanine Aminotransferase 50 U/L (6-50); Albumin Level 4.3 g/dL (3.5-5.1); Alkaline Phosphatase 63 U/L (38-126); Aspartate Amino Transferase 72 U/L (17-59); Bilirubin,Total 0.4 mg/dL (0.2-1.3)
[2024-06-15 13:59] LABS: Iron 96 ug/dL (49-181)
[2024-06-15 14:10] LABS: Percent Iron Saturation 36 % (20-50)
[2024-06-15 14:54] LABS: Hepatitis C Virus Antibody Reactive (Negative)
[2024-06-16 17:19] LABS: Hepatitis C RNA, Quant PCR <15 NOT DETECTED IU/mL (NOT DETECTED)
[2024-06-19 03:43] LABS: Immunoglobulin A 219 mg/dL (70-320); TTG IGA AB <1.0 U/mL
== END 2024-06-15 08:12 | disposition home or self-care (01) ==
PROVIDERS: PCP Internal Medicine; Visit Provider Internal Medicine
DX: R74.8 Abnormal levels of other serum enzymes (principal); K75.9 Inflammatory liver disease, unspecified; D64.9 Anemia, unspecified
CPT/HCPCS: 36415; 80076; 82728; 82784; 83540; 83550; 86038; 86039; 86364; 86803; 87522

== ENCOUNTER 2024-08-07 09:57 | Outpatient (CLI) | payer MEDICARE, MEDICAID, SELFPAY ==
--- NOTE | ~2024-08-07 | US_ITS ---
Limited Abdominal Sonogram: Real-time sonographic imaging of the right upper quadrant was performed. Clinical History: Abnormal serum enzyme levels Findings: The liver appears echogenic, with no evidence of mass lesion or bile duct dilatation. Main portal vein demonstrates normal direction of flow. The gallbladder is well distended, and appears no rmal with no evidence of gallstone or wall thickening. The common bile duct measures 10 mm. The visu alized pancreas, aorta, and IVC are unremarkable. Impression: Diffuse fatty infiltration of liver. Mildly dilated common bile duct. Reviewed, dictated and finalized at location M. INE I COREMAKER Impression: Diffuse fatty infiltration of liver. Mildly dilated common bile duct.
== END 2024-08-07 09:58 | disposition home or self-care (01) ==
PROVIDERS: PCP Internal Medicine; Visit Provider Internal Medicine
DX: K76.0 Fatty (change of) liver, not elsewhere classified (principal); K83.8 Other specified diseases of biliary tract; R74.8 Abnormal levels of other serum enzymes
CPT/HCPCS: 76705

== ENCOUNTER 2024-12-15 08:42 | Outpatient (CLI) | payer MEDICARE, MEDICAID, SELFPAY ==
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
--- OUTSIDE RECORDS SUMMARY | 2024-12-15 08:57 | XMS_ITS | CONTINUITY OF CARE DOCUMENT ---
Author Name ciarra lafleur Address Unknown Organization [facility] Address [address] [place] [address] Phone [phone] Care Team Providers Care Needle Punch Machine Operator Helper Name Role Phone ciarra lafleur Unavailable Unavailable
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
--- OUTSIDE RECORDS SUMMARY | 2024-12-15 08:57 | XMS_ITS | Clinical Summary ---
Author Organization [facility] [employer] Address [address] [place] [address] Care Team Providers Care Land Agent Name Role Phone Unavailable Primary Care Provider Unavailabl e Source Comments [facility] [employer],non-owned Affiliates and Associated Physician Practices is amultiple site organization consisting of ambulatory clinics and hospital sitesin [place], [place], [place] and [place]. This disclosure is being madepursuant to the Care Everywhere program and may not contain all information available regarding this patient. Last updated 18.[facility] [employer] Social History Tobacco Use Types Packs/Day Years Used Date Smoking Tobacco: Never Assessed Sex and Gender Information Value Date Recorded Sex Assigned at Not on file Gender Identity Not on file Sexual Orientation Not on file Plan of Treatment Health Maintenance Due Date Last Done Comments COLOGUARD (AGES 45-75) - COL ON CA SCREENING 1953 COLON MONITORING 1953 COLONOSCOPY - COLON CA SCREENING 1953 CT COLONOGRAPHY - COLON CA SCREENING 1953 Colorectal Cancer Screening 1953 FIT - COLON CA SCREENING 1953 FLEX SIG - COLON CA SCREENING 1953 LIPID TESTING 1953 MEDICARE AWV 12 MONTHS 1953 HEPATITIS C SCREENING 05/31/1971 DTAP/TDAP/TD VACCINES (1 - Tdap) 1972 PNEUMOCOCCAL VACCINE 50+ (1 of 1 - PCV) 2003 ZOSTER VACCINE (1 of 2) 2003 COVID-19 VACCINE ( - 2023-2 5 season) 2024 INFLUENZA VACCINE (#1) 2024 DEPRESSION SCREENING 09/16/2024 Respiratory Syncytial Virus (RSV) Vaccine Pt: or over 60 yrs (1 - 1-dose 75+ series) 2028 HEPATITIS B VACCINE Aged Out No longe r eligible based on patient's age to complete this topic HIB VACCINE Aged Out No longer eligi ble based on patient's age to complete this topic HPV VACCINE Aged Out No longer eligi ble based on patient's age to complete this topic MENINGOCOCCAL (Group B) VACC INE SHARED DECISION-MAKING Aged Out No longer eligibl e based on patient's age to complete this topic MENINGOCOCCAL GROUPS A/C/Y/W VACCINE Aged Out No longer eligible b ased on patient's age to complete this topic
--- OUTSIDE RECORDS SUMMARY | 2024-12-15 08:57 | XMS_ITS | Clinical Summary ---
Author Organization [facility] Address [address] [place] [address] Phone Care Team Providers Care Epic Trainer Name Role Phone Provider, Unknown Primary Care Provider Unavaila ble Active Problems Problem Noted Date Diagnosed Date Chronic pain syndrome 04/18/2018 Somatic symptom disorder, pe rsistent, severe, with predominant pain 04/18/2018 Social History Tobacco Use Types Packs/Day Years Used Date Smoking Tobacco: Never Assessed Sex and Gender Information Value Date Recorded Sex Assigned at Not on file Legal Sex Male 7:45 PM CDT Gender Identity Not on file Sexual Orientation Not on file Plan of Treatment Health Maintenance Due Date Last Done Comments Hepatitis C Virus (HCV) Screening 1955 TdaP Immunization 1953 Colonoscopy 1998 Colorectal Cancer Screening 1998 Cologuard 2003 Immunochemical Fecal Occult Blood 2003 Zoster Immunization (1 of 2) 2003 Pneumococcal Immunization (5 0+ years) (2 of 2 - PCV) 07/18/2014 07/18/2013 Influenza Immunization (#1) 05/17/202407/18, 07/18/2013 SARS-COV-2 Immunization ( season) 2024 07/15/2021, 11/18/2020 Respiratory Syncytial Virus (RSV) Immunization (Adult) (1 - 1-dose 75+ series) 2028 Pneumococcal Immunization Combined Discontinued 07/18/2013 Hepatitis B Immunization Aged Out No longer eligible based on patient's age to complete this topic Meningococcal Immunization (ACWY) Aged Out No longer eligible based on patient's age to complete this topic Rotavirus Immunization Aged Out No lo nger eligible based on patient's age to complete this topic Insurance MEDICARE [place] Care Teams Epic Trainer Relationship Specialty Start Date End Date Provider, Unknown UNKNOWN PCP - General 04/14/18
--- OUTSIDE RECORDS SUMMARY | 2024-12-15 08:57 | XMS_ITS | Continuity of Care Document ---
Author Organization [facility] Address [address] [place] [address] Phone Care Team Providers Care Process Control Tech Name Role Phone Eugenie Ram MD Unavailable Unavailable Allergies, Adverse Reactions, Alerts Substance Reaction Status Criticality No Known Drug Allergies Other Active No I nformation Medications Medication Instructions Dosage Effective Dates (start - stop) Status Comments SKELAXIN 800MG TABS 1 BID - Active VIAGRA 50MG TABS 1 QD-daily - Active PERCOCET 10-325MG TABS 1 Q 4HR - Active ADULT LOW STRENGTH 81MG TABS 1 QD - Active FLOMAX 0.4MG CAPS 1 QD-daily No Longer Active LIPITOR 20MG TABS .5 QD No Longer Active VICOPROFEN 200-7.5MG TABS 1 Q 8HR - No Longer Active Advance Directives Directive Yes / No Effective Date File Name No Information Encounters Encounter Description Practice Location Reason(s) For Visit Diagnoses Date Provider Providers Copied on Encounter [facility], [address], [place], [place], [address] , [place] tel: [phone] [facility] No Information [address]. [address], [place], [place], [address], [place]. tel:[phone] [facility], [address], [place], [place], [address] , tel: [phone] [facility] HEPATITIS C CARRIERNOCTURIAHY PERLIPIDEMIA NEC/NOSBPH W/O URINARY OBS/LUTSSCREEN MAL NEOP-RECTUM [address], [address], [place], [place], [address], [place]. tel: [phone] [facility], [address], [place], [place], [address] , [place] tel: [phone] [facility] CHRNC HPT C WO HPAT COMADISORDER OF PENIS NECSCRN MALIG NEOP-PROSTATEURIN TANVI FREQUENCYSCREEN-D IABETES MELLITUSPrediabet es [address], [place], [place], [address], [place]. tel: [phone] [facility], [address], [place], [place], [address] , [place] tel: [phone] [facility] BENIGN HYPERTENSIONCONST IPATION NOSURIN TRACT INFECTION NOSHEMORRHOIDS NOS [address], [place], [place], [address], [place]. tel: [phone] [facility], [address], [place], [place], [address] , [place] tel: [phone] [facility] ROUTINE MEDICAL EXAM 2 [address] [facility]. [address] [place] [address], [address], [place]. [facility], [address], [place], [place], [address] , [place] tel: [phone] [facility] SCREEN LIPOID DISORDERSDIZZINES S AND GIDDINESSBACKACHE NOS 2 [address], [place], [place], [address], [place]. tel: [phone] [facility], [address], [place], [place], [address] , [place] tel: [phone] [facility] TOBACCO USE DISORDERINHIBITED SEX EXCITEMENTHISTORY OF TOBACCO USECORNS AND CALLOSITIES [address], [place], [place], [address], [place]. tel:[phone] [facility], [address], [place], [place], [address] , [place] tel: [phone] [facility] LIPOMA NEC 4 Remi Kevinevonne Chan. [address], [place], [place], [address], [place]. tel:[phone] [facility], [address], [place], [place], [address] , [place] tel: [phone] [facility] No Information 4 [address] Traore. [address], [address], [place], [place], [address], [place]. tel:[phone] Family History Family Member Type Diagnosis Age At Onset No Information Payers Payer name Insurance type Covered constitution party ID Authoriza tion(s) No Information Social History [...]
[2024-12-15 09:28] LABS: Alanine Aminotransferase 30 U/L (6-50); Albumin Level 4.6 g/dL (3.5-5.1); Alkaline Phosphatase 67 U/L (38-126); Anion Gap 9 mmol/L (4-12); Aspartate Amino Transferase 29 U/L (17-59); Bilirubin,Total 0.4 mg/dL (0.2-1.3); Blood Urea Nitrogen 23 mg/dL (9-20); Calcium 9.5 mg/dL (8.4-10.2); Carbon Dioxide 25 mmol/L (22-30); Chloride 106 mmol/L (98-107); Cholesterol 211 mg/dL (0-200); Estimated Glomerular Filt Rate > 60; Glucose 111 mg/dL (65-110); HDL Direct 44 mg/dL; Potassium 4.1 mmol/L (3.4-5.0); Sodium 140 mmol/L (137-145); Triglycerides 57 mg/dL (<150)
[2024-12-15 09:39] LABS: LDL Cholesterol Direct 134 mg/dL
[2024-12-15 09:56] LABS: Free T3 3.66 pg/mL (2.45-5.93)
[2024-12-15 10:34] LABS: Folic Acid 11.5 ng/mL (2.76->20)
== END 2024-12-15 08:43 | disposition home or self-care (01) ==
PROVIDERS: PCP Internal Medicine; Visit Provider Internal Medicine
DX: R20.2 Paresthesia of skin (principal); R74.8 Abnormal levels of other serum enzymes; I10 Essential (primary) hypertension; E78.5 Hyperlipidemia, unspecified; G62.9 Polyneuropathy, unspecified
CPT/HCPCS: 36415; 80053; 80061; 82172; 82607; 82746; 84443; 84481

== ENCOUNTER 2025-01-26 09:11 | Outpatient (CLI) | payer MEDICARE, MEDICAID, SELFPAY ==
--- OUTSIDE RECORDS SUMMARY | 2025-01-26 09:20 | XMS_ITS | CONTINUITY OF CARE DOCUMENT ---
Author Name ciarra lafleur Address Unknown Organization [facility] Address [address] [place] [address] Phone [phone] Care Team Providers Care Char Belt Operator Name Role Phone ciarra lafleur Unavailable Unavailable
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
--- OUTSIDE RECORDS SUMMARY | 2025-01-26 09:21 | XMS_ITS | Clinical Summary ---
Author Organization [facility] Address [address] [place] [address] Phone Care Team Providers Care Photographer Finish Name Role Phone Provider, Unknown Primary Care [...] topic Insurance MEDICARE [place]ICAID [place] Care Teams Photographer Finish Relationship Specialty Start Date End Date Provider, Unknown UNKNOWN PCP - General 04/14/18
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
--- OUTSIDE RECORDS SUMMARY | 2025-01-26 09:21 | XMS_ITS | Clinical Summary ---
Author Organization [facility] [employer] Address [address] [place] [address] Care Team Providers Care Multimedia Services Manager Name Role Phone Unavailable Primary Care Provider Unavailabl e Source Comments [facility] [employer],non-owned Affiliates and Associated Physician Practices is amultiple site organization consisting of ambulatory clinics and hospital sitesin [place], [place], [place] and [place]. This disclosure is being madepursuant to the Care Everywhere program and may not contain all information available regarding this patient. Last updated 18.[facility] [employer] Social History Tobacco Use Types Packs/Day Years Used Date Smoking Tobacco: Never Assessed Sex and Gender Information Value Date Recorded Sex Assigned at Not on file Legal Sex Male 6:21 AM MANAGER SHIFT Gender Identity Not on file Sexual Orientation [...] COLON CA SCREENING 1955 LIPID TESTING 1955 HEPATITIS C SCREENING 05/31/1971 DTAP/TDAP/TD VACCINES (1 - Tdap) 1972 PNEUMOCOCCAL VACCINE 50+ (1 of 1 - PCV) 2003 ZOSTER VACCINE (1 of 2) 2003 COVID-19 VACCINE ( - 2023-2 5 season) 2024 DEPRESSION SCREENING 09/16/2024 INFLUENZA VACCINE (Season Ended) 2025 Respiratory Syncytial Virus (RSV) Vaccine Pt: or [...] age to complete this [place] [address]
--- NOTE | 2025-01-26 11:15 | NEURO_ITS ---
Impression: # Complains of numbness of feet. Not diabetic. History of multiple back surgeries. 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 # Needle/EMG exam mild chronic neurogenic changes but no acute changes. 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 Nerve Conduction Studies Anti Sensory Summary Table Stim Site NR Peak (ms) P-T Amp (µV) Site1 Site2 Delta-P (ms) Dist (cm) Dennys (m/s) Left Sup Fibular Anti Sensory (Ant Lat Mall) NO RESPONSE 14 cm NR 14 cm Ant Lat Mall 16.0 Right Sup Fibular Anti Sensory (Ant Lat Mall) NO RESPONSE 14 cm NR 14 cm Ant Lat Mall 16.0 Left Sural Anti Sensory (Lat Mall) NO RESPONSE Calf NR Calf Lat Mall 16.0 Right Sural Anti Sensory (Lat Mall) NO RESPONSE Calf NR Calf Lat Mall 16.0 Motor Summary Table Stim Site NR Onset (ms) O-P Amp (mV) Site1 Site2 Delta-0 (ms) Dist (cm) Dennys (m/s) Left Peroneal Motor (Vastus Med) Ankle 3.8 1.4 Popit Ankle 9.7 45.0 46 Popit 13.5 2.0 Right Peroneal Motor (Vastus Med) Ankle 4.0 2.3 Popit Ankle 8.3 40.0 48 Popit 12.3 1.3 Left Tibial Motor (Abd Santillan Brev) Ankle 4.2 5.9 Knee Ankle 9.4 43.0 46 Knee 13.6 4.4 Right Tibial Motor (Abd Santillan Brev) Ankle 4.3 2.7 Knee Ankle 9.6 41.0 43 Knee 13.9 1.3 F Wave Studies NR F-Lat (ms) L-R F-Lat (ms) Left Peroneal (Mrkrs) (EDB) 55.67 1.13 Right Peroneal (Mrkrs) (EDB) 54.54 1.13 Left Tibial (Mrkrs) (Abd Hallucis) 54.46 0.59 Right Tibial (Mrkrs) (Abd Hallucis) 55.05 0.59 EMG Side Muscle Nerve Root Ins Act Fibs Amp Dur Recrt Comment Right AntTibialis Dp Br Fibular L4-5 Nml Nml Nml Nml Nml Right Gastroc Tibial S1-2 Nml Nml Nml Nml Nml Right Fibularis Long Sup Br Fibular L5-S1 Nml Nml Nml Nml Nml Right Flex Dig Long Tibial L5-S2 Nml Nml Nml Nml Nml Right Ext Dig Brev Dp Br Fibular L5, S1 Nml Nml Nml Nml Nml Right QuadratusFem QuadFemoris L4-5, S1 Nml Nml Nml Nml Nml Left AntTibialis Dp Br Fibular L4-5 Nml Nml Nml Nml Nml Left Gastroc Tibial S1-2 Nml Nml Nml Nml Nml Left Fibularis Long Sup Br Fibular L5-S1 Nml Nml Nml Nml Nml Left Flex Dig Long Tibial L5-S2 Nml Nml Nml Nml Nml Left Ext Dig Brev Dp Br Fibular L5, S1 Nml Nml Nml Nml Nml Left QuadratusFem QuadFemoris L4-5, S1 Nml Nml Nml Nml Nml MTDD
== END 2025-01-26 09:12 | disposition home or self-care (01) ==
LOC: ANHNEURO 09:12
PROVIDERS: PCP Internal Medicine; Visit Provider Internal Medicine
DX: G60.0 Hereditary motor and sensory neuropathy (principal)
CPT/HCPCS: 95886; 95910

== ENCOUNTER 2025-06-30 15:10 | Outpatient (CLI) | payer MEDICARE, MEDICAID, SELFPAY ==
--- OUTSIDE RECORDS SUMMARY | 2011-05-21 19:00 | XMS_ITS | Continuity of Care Document ---
Author Organization [facility] Address [address] [place] [address] Phone Care Team Providers Care Manager It Security Name Role Phone Eugenie Ram MD Unavailable Unavailable Allergies, Adverse Reactions, Alerts Substance Reaction Status Criticality No Known Drug Allergies Other Active No I nformation Medications Medication Instructions Dosage Effective Dates (start - stop) Status Comments SKELAXIN 800MG TABS 1 BID - Active VIAGRA 50MG TABS 1 QD-daily - Active ADULT LOW STRENGTH 81MG TABS 1 QD - Active PERCOCET 10-325MG TABS 1 Q 4HR - Active FLOMAX 0.4MG CAPS 1 QD-daily No Longer Active LIPITOR 20MG TABS .5 QD No Longer Active VICOPROFEN 200-7.5MG TABS 1 Q 8HR - No Longer Active Advance Directives Directive Yes / No Effective Date File Name No Information Encounters Encounter Description Practice Location Reason(s) For Visit Diagnoses Date Provider Providers Copied on Encounter [facility], [address], [place], [place], [address] , [place] tel: [phone] [facility] No Information [address] Traore. [address], [address], [place], [place], [address], [place]. [phone] [facility], [address], [place], [place], [address] , tel: [phone] [facility] HEPATITIS C CARRIERNOCTURIAHY PERLIPIDEMIA NEC/NOSBPH W/O URINARY OBS/LUTSSCREEN MAL NEOP-RECTUM [address], [address], [place], [place], [address], [place]. tel: [phone] [facility], [address], [place], [place], [address] , [place] tel: [phone] [facility] HPT C WO HPAT COMADISORDER OF PENIS NECSCRN MALIG NEOP-PROSTATEURIN TANVI FREQUENCYSCREEN-D IABETES MELLITUSPrediabet es [address], [address], [place], [place], [address], [place]. tel: [phone] [facility], [address], [place], [place], [address] , [place] tel: [phone] [facility] BENIGN HYPERTENSIONCONST IPATION NOSURIN TRACT INFECTION NOSHEMORRHOIDS NOS [address], [address], [place], [place], [address], [place]. tel: [phone] [facility], [address], [place], [place], [address] , [place] tel: [phone] [facility] ROUTINE MEDICAL EXAM 2 5 [facility] [address]. [address] [place] [address], [address], [place]. [facility], [address], [place], [place], [address] , [place] tel: [phone] [facility] SCREEN LIPOID DISORDERSDIZZINES S AND GIDDINESSBACKACHE NOS [address], [place], [place], [address], [place]. tel: [phone] [facility], [address], [place], [place], [address] , [place] tel: [phone] [facility] TOBACCO USE DISORDERINHIBITED SEX EXCITEMENTHISTORY OF TOBACCO USECORNS AND CALLOSITIES [address], [place], [place], [address], [place]. tel:[phone] [facility], [address], [place], [place], [address] , [place] tel: [phone] [facility] LIPOMA NEC [address] Remi Kevinevonne Chan. [address], [place], [place], [address], [place]. tel:[phone] [facility], [address], [place], [place], [address] , [place] tel: [phone] [facility] No Information 4 [address] Traore. [address] [facility], [address], [place], [place], [address], [place]. tel:[phone] Family History Family Member Type Diagnosis Age At Onset No Information Payers Payer name Insurance type Covered democrat ID Authoriza tion(s) No Information Social History Type Description Quantity Date Captured Comments Sex Male Smoking Status No Information Chief Complaint And Reason For Visit No Information Reason For Referral Reason For Referral No Information History Of Present Illness Encounter Date Complaint History Of Prese nt Illness No Information Functional Status Date Functional Assessmen t No Information Instructions Date Instruction Additional Infor mation No Information Assessments Type Assessment Date No Information Patient Care Teams Name Effective Dates (start - stop) Status Members No Information
--- NOTE | ~2025-06-30 | CT_ITS ---
EXAMINATION:CT lung screening DATE: 06/30/2025 15:41 INDICATION: Personal history of nicotine dependence. TECHNIQUE: Computed tomography (CT) of the chest was performed without intravenous contrast. Automated exposure control and iterative reconstruction technique were employed. The dose-length product (DLP) was 181.07 mGy-cm. COMPARISON: Chest CT 06/26/2019 FINDINGS: There is mild emphysema. There is a 3 mm nodule in right middle lobe. There is a 3 mm nodule in right upper lobe. There is a 2 mm nodule in left upper lobe. There is a 2 mm nodule in left upper lobe. No pleural effusion. The heart size is normal. There are coronary artery calcifications. No pericardial effusion. There is a left shoulder arthroplasty. Epidural electrodes are noted. There are bridging endplate osteophytes at multiple levels in the spine, consistent with diffuse idiopathic skeletal hyperostosis (DISH). There is mild chronic anterior wedging of multiple thoracic vertebral bodies. IMPRESSION: 1. Lung-RADS category 2: Benign appearance or behavior. Continue annual screening with noncontrast low-dose chest CT in 12 months. Reviewed, dictated and finalized at location E. IMPRESSION: 1. Lung-RADS category 2: Benign appearance or behavior. Continue annual screeni ng with noncontrast low-dose chest CT in 12 months.
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
--- OUTSIDE RECORDS SUMMARY | 2025-06-30 17:18 | XMS_ITS | Clinical Summary ---
Author Organization [facility] Address [address] [place] [address] Phone Care Team Providers Care Hat Lining Blocker Name Role Phone Provider, Unknown Primary Care [...] Virus (HCV) Screening 1955 TdaP Immunization 1953 Cologuard 1998 Colonoscopy 1998 Colorectal Cancer Screening 1998 Immunochemical Fecal Occult Blood 1998 Zoster Immunization (1 of 2) 2003 Pneumococcal Immunization (5 0+ years) (2 of 2 - PCV) 07/18/2014 07/18/2013 Influenza Immunization (#1) 05/17/202507/18, 07/18/2013 SARS-COV-2 Immunization (3 - season) 2025 07/15/2021, 11/18/2020 Respiratory Syncytial Virus (RSV) Immunization (Adult) (1 - 1-dose 75+ series) 2028 Pneumococcal Immunization Combined Discontinued 07/18/2013 Hepatitis B Immunization Aged Out No longer eligible based on patient's age to complete this topic Human Papillomavirus (HPV) Immunization Aged Out No longer eligible based on patient's age to complete this topic Meningococcal Immunization (ACWY) Aged Out No longer eligible based on patient's age to complete this topic Rotavirus Immunization Aged Out No lo nger eligible based on patient's age to complete this topic Insurance MEDICARE MEDICAID [place] Care Teams Hat Lining Blocker Relationship Specialty Start Date End Date Provider, Unknown UNKNOWN PCP - General 04/14/18
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
--- OUTSIDE RECORDS SUMMARY | 2025-06-30 17:18 | XMS_ITS | Clinical Summary ---
Author Organization [facility] [employer] Address [address] [place] [address] Care Team Providers Care Cultural Anthropology Professor Name Role Phone Unavailable Primary Care Provider Unavailabl e Source Comments [facility] [employer],non-owned Affiliates and Associated Physician Practices is amultiple site organization consisting of ambulatory clinics and hospital sitesin [place], [place], [place] and [place]. This disclosure is being madepursuant to the Care Everywhere program and may not contain all information available regarding this patient. Last updated 18.[facility] [employer] Social History Tobacco Use Types Packs/Day Years Used Date Smoking Tobacco: Never Assessed Sex and Gender Information Value Date Recorded Sex Assigned at Not on file Legal Sex Male 6:21 AM HORSE TRAINER Gender Identity Not on file Sexual Orientation [...] 2003 ZOSTER VACCINE (1 of 2) 2003 DEPRESSION SCREENING 09/16/2024 COVID-19 VACCINE (1 - 2023-2 5 season) 2025 INFLUENZA VACCINE (#1) 2025 Respiratory Syncytial Virus (RSV) Vaccine Pt: [...] age to complete this topic [place] [address]
== END 2025-06-30 15:11 | disposition home or self-care (01) ==
PROVIDERS: PCP Internal Medicine; Visit Provider Internal Medicine
DX: Z12.2 Encounter for screening for malignant neoplasm of respiratory organs (principal); Z87.891 Personal history of nicotine dependence
CPT/HCPCS: 71271

== ENCOUNTER 2025-07-10 19:37 | Observation (INO) | payer MEDICARE, MEDICAID, SELFPAY ==
--- NOTE | ~2025-07-10 | XR_ITS ---
Examination: XR wrist RT min 3V Clinical History: swelling/pain Comparison: None Technique: 4 views right wrist Findings/impression: 1. No fracture or dislocation right wrist. 2. Severe degenerative changes basal joint of thumb. 3. Mild chondrocalcinosis TFCC. Reviewed, dictated and finalized at location R.
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
--- OUTSIDE RECORDS SUMMARY | 2025-07-10 19:39 | XMS_ITS | Clinical Summary ---
Author Organization [facility] [employer] Address [address] [place] [address] Care Team Providers Care Conference Center Coordinator Name Role Phone Unavailable Primary Care Provider Unavailabl e Source Comments [facility] [employer],non-owned Affiliates and Associated Physician Practices is amultiple site organization consisting of ambulatory clinics and hospital sitesin [place], [place], [place] and [place]. This disclosure is being madepursuant to the Care Everywhere program and may not contain all information available regarding this patient. 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
--- OUTSIDE RECORDS SUMMARY | 2025-07-10 19:39 | XMS_ITS | Clinical Summary ---
Author Organization [facility] Address [address] [place] [address] Phone Care Team Providers Care Operating Room Specialist Name Role Phone Provider, Unknown Primary Care [...] topic Insurance MEDICARE [place]ICAID [place] Care Teams Operating Room Specialist Relationship Specialty Start Date End Date Provider, Unknown UNKNOWN PCP - General 04/14/18
[2025-07-10 19:41] VITALS: BP 171/68; PULSE 100; RESP 18; TEMP 37.2; O2SAT 97
[2025-07-10 19:48] VITALS: BP 158/86; PULSE 93; RESP 20; O2SAT 95
--- NOTE | 2025-07-10 19:52 | PC.NURSE ---
1953-RIGHT FINGERS ARE WARM, REDDENED, AND MOBILE. STRONG RIGHT RADIAL PULSE. RIGHT HAND IS EXTREMELY SENSITIVE TO PALPATION. PATIENT WITH HISTORY OF GOUT AND STATES SYMPTOMS FEEL SIMILAR. PATIENT HAS HAD HOME OXYCODONE FOR PAIN WITH LAST DOSE AT 1500.
--- NOTE | 2025-07-10 19:57 | ED_ITS ---
HPI - Extremity Problem General Chief complaint: Extremity Problem,Nontraumatic <Tracey Tafoya PA-C - Last Filed: 07/10/25 22:39> Stated complaint: gout flare to right hand/wrist <Tracey Tafoya PA-C - Last Filed: 07/10/25 22:39> Time Seen by Provider: 07/10/25 19:53 <MYCHAL Cunningham Last Filed: 07/10/25 22:39> Source: patient and old records reviewed <MYCHAL Cunningham Last Filed: 07/10/25 22:39> Mode of arrival: ambulatory <MYCHAL Cunningham Last Filed: 07/10/25 22:39> Limitations: no limitations <MYCHAL Cunningham Last Filed: 07/10/25 22:39> History of Present Illness HPI Narrative: Patient is a 70-year-old male who presents the ED with report of right wrist pain/swelling. Patient reports having pain, swelling, decreased range of motion throughout right wrist over the past 2 days. States pain progressively worsened today and became unbearable. He did take oxycodone and ibuprofen this afternoon without improvement. He is prescribed oxycodone for his chronic back pain. He reports history of similar episode in the past involving his left wrist, at which time he was admitted to the hospital for gout, possible septic arthritis, was seen by Orthopedics at that time. States this does feel somewhat similar. Denies any fall or injury. Denies numbness. <MYCHAL Cunningham Last Filed: 07/10/25 22:39> Related Data Home medications: Home Medications ?Medication ?Instructions ?Recorded ?Confirmed ?Last Taken ?Type naloxone 4 mg/actuation nasal 4 mg intranasal PRN 12/1611/30/24 Unknown History spray (Narcan) oxycodone 10 mg tablet 10 mg PO TID 11/13/22 Unknown History Topical Pain Cream topical 05/25/24 11/30/24 Un known History Gabapentin, Diclofenac, transdermal 11/30/24 5 Unknown History Ibuprophen, Pentoxifylline, Lidocaine, Amptriptline, cyclobenzaprine Cream <Tracey Tafoya PA-C - Last Filed: 07/10/25 22:39> Allergies/Adverse reactions: Allergies Allergy/AdvReac Type Severity Reaction Status Date / Time lisinopril Allergy Swelling Verified 07/10/25 19:44 of Lip/Tongue/Throat <Tracey Tafoya PA-C - Last Filed: 07/10/25 22:39> Review of Systems 2 Review of Systems: All systems reviewed & are unremarkable except as noted in HPI. <Tracey Tafoya PA-C - Last Filed: 07/10/25 22:39> All systems reviewed & are unremarkable except as noted in HPI and below < Tracey Tafoya PA-C - Last Filed: 07/10/25 22:39> [facility] Past Medical History Medical History: Medical History (Updated 07/10/25 @ 22:43 by Lorrie Loco DO) Essential hypertension Heart murmur on physical examination Echocardiogram 05/2021: EF 60-65% diastolic dysfunction grade 1 E/E 8 is minimally elevated, mild biatrial enlargement, trace tricuspid regurgitation Lumbar back pain Peripheral neuropathy Panic anxiety syndrome History of tuberculosis Atherosclerosis of aorta History of hepatitis C Neuropathy Asthma Peripheral arterial disease Chronic pain syndrome Celiac artery dissection Seasonal allergies Arthritis Sleep apnea Anxiety COPD (chronic obstructive pulmonary disease) Hyperlipidemia Pseudogout of left wrist Erectile dysfunction Anemia Encounter for monitoring testosterone replacement therapy Depression Low testosterone in male <Tracey Tafoya PA-C - Last Filed: 07/10/25 22:39> Surgical History Surgical History: Surgical History History of arthroplasty of left shoulder History of carpal tunnel release Left hand, right hand 03/2022 H/O foot surgery 3 surgeries R foot, 2 surgeries L foot S/P foot surgery, right H/O shoulder surgery History of back surgery 07/07/2021 H/O neck surgery <Tracey Tafoya PA-C - Last Filed: 07/10/25 22:39> Family History Family History: Family History Grandparent Diabetes mellitus Sibling Family history of cardiovascular disease Mother Family history of primary malignant neoplasm of liver Alcoholism Father Alcoholism Other Arthritis Family history of alcoholism Family history of attention deficit hyperactivity disorder (ADHD) Family history of rheumatoid arthritis Hypertension <Tracey Tafoya PA-C - Last Filed: 07/10/25 22:39> Social History Social History: Social History (Updated 07/10/25 @ 22:41 by Lorrie Loco DO) Social History: The patient stated that he lives with his . He is on disability for his neck and his back. He has 2 children. Patient used to drink heavily but no longer drinks. Patient still continues to smoke a pack a cigarettes a day for the last 44 years. Code status: Full code Surrogate decision maker: Smoking packs per day: 0.5 Smoking cigarettes per day: 10.0 Years smoked: 40 Smoking pack-years: 20.00 Smoking status: Current every day smoker Tobacco type: cigarettes Second hand tobacco smoke exposure: Yes Alcohol intake: never Substance use: current Substance use type: marijuana Other substance usage details: leaf; has MMJ card Do You Feel Safe in your Home?: Yes Lack of Transportation: No Lack of Food: Sometimes True Current Housing: I Have Housing Concerned About Future Housing: No Difficulty Paying Gas/Electric Bills: YES Difficulty Paying for Meds: No Currently Unemployed: No Education: High School Diploma/GED Difficulty w/ Childcare or Family Care: No Living arrangements: with family Occupation/Education: occupation Additional occupation/education comments: [employer], self employed Gender identity (if verbalized by the patient): Male Spiritual care concerns: No Agree to blood products: Yes <Tracey Tafoya PA-C - Last Filed: 07/10/25 22:39> Exam 2 Narrative: GENERAL: Elderly, mildly ill appearing, obese with BMI of 31.4, non-toxic, in no acute distress. HEAD: Normocephalic, atraumatic. RESPIRATORY: Airway patent, respirations nonlabored. CARDIOVASCULAR: Regular rate and rhythm. Radial pulses strong and easily palpable MUSCULOSKELETAL: No gross deformities. Moderate swelling/tenderness throughout R distal radius/ulnar region into carpal region. Mild warmth present, minimal erythema over distal dorsal radius. Severe decreased range of motion of right wrist flexion and extension/supination/pronation. Sensation is intact throughout extremity. SKIN: Warm, dry, normal color. NEURO: A&O X3. Speech clear. Cranial nerves II-XII grossly intact. No ataxic movements. PSYCHIATRIC: Appropriate mood and affect. Normal interaction. <Tracey Tafoya PA-C - Last Filed: 07/10/25 22:39> Course FAMILY SERVICE CASEWORKER/PA Physician Supervision This visit was performed by both a physician and an APC. I performed all aspects of the MDM as documented. <Riley Lindsay MD - Last Filed: 07/10/25 22:50> Vital Signs Vital signs: Vital Signs Temperature 99.0 F 07/10/25 19:41 Pulse Rate 100 07/10/25 19:41 Respiratory Rate 18 07/10/25 19:41 Blood Pressure 171/68 H 07/10/25 19:41 Pulse Oximetry 97 07/10/25 19:41 Oxygen Delivery Room Air 07/10/25 19:41 Temperature 100.8 F H 07/10/25 21:21 Pulse Rate 94 07/10/25 21:21 Respiratory Rate 20 07/10/25 21:21 Blood Pressure 160/70 H 07/10/25 21:21 Pulse Oximetry 93 07/10/25 21:21 Oxygen Delivery Room Air 07/10/25 19:41 <Tracey Tafoya PA-C - Last Filed: 07/10/25 22:39> Vital Signs Temperature 99.0 F 07/10/25 19:41 Pulse Rate 100 07/10/25 19:41 Respiratory Rate 18 07/10/25 19:41 Blood Pressure 171/68 H 07/10/25 19:41 Pulse Oximetry 97 07/10/25 19:41 Oxygen Delivery Room Air 07/10/25 19:41 Temperature 100.8 F H 07/10/25 21:21 Pulse Rate 94 07/10/25 21:21 Respiratory Rate 20 07/10/25 21:21 Blood Pressure 160/70 H 07/10/25 21:21 Pulse Oximetry 93 07/10/25 21:21 Oxygen Delivery Room Air 07/10/25 19:41 <Riley Lindsay MD - Last Filed: 07/10/25 22:50> MDM - Extremity (Nontraumatic) MDM Narrative Medical decision making narrative: Patient presented to ED with c/o R wrist pain/swelling X2d. History similar episode in the past and was admitted for IV antibiotics. Patient borderline febrile upon arrival, mildly ill appearing, significant decreased ROM of R wrist. Given pain medication and colchicine for possible gout picture. Records were reviewed. Patient was admitted for possibility of septic arthritis, treated for pseudogout and superimposed infection. Seen by Orthopedics at that time. X-ray of right wrist interpreted by myself showing significant degenerative/erosive changes, particularly at 1st mcp region, no acute fracture Laboratory studies with white blood cell count of 11.8. Neutrophil predominance. CRP elevated Patient did become febrile in the ED to 100.8, despite taking ibuprofen within the last couple hours at home. Given additional Tylenol here. Lactic pending. Blood cx obtained Fluids started Discussed case with Dr. Pennington, orthopedics, recommended admission to hospital, will consult and see patient tomorrow morning, start ancef 2g q8h. NPO Discussed case with Dr. Loco, hospitalist, accepted patient for admission. Patient and family in agreement with plan and admission. <Tracey Tafoya PA-C - Last Filed: 07/10/25 22:39> Patient presented to ED with c/o R wrist pain/swelling X2d. History similar episode in the past and was admitted for IV antibiotics. Patient borderline febrile upon arrival, mildly ill appearing, significant decreased ROM of R wrist. Given pain medication and colchicine for possible gout picture. Records were reviewed. Patient was admitted for possibility of septic arthritis, treated for pseudogout and superimposed infection. Seen by Orthopedics at that time. X-ray of right wrist interpreted by myself showing significant degenerative/erosive changes, particularly at 1st mcp region, no acute fracture Laboratory studies with white blood cell count of 11.8. Neutrophil predominance. CRP elevated Patient did become febrile in the ED to 100.8, despite taking ibuprofen within the last couple hours at home. Given additional Tylenol here. Lactic pending. Blood cx obtained Fluids started Discussed case with Dr. Pennington, orthopedics, recommended admission to hospital, will consult and see patient tomorrow morning, start ancef 2g q8h. NPO Discussed case with Dr. Loco, hospitalist, accepted patient for admission. Patient and family in agreement with plan and admission. This visit was performed by both a physician and an APC. I performed all aspects of the MDM as documented. <Riley Lindsay MD - Last Filed: 07/10/25 22:50> Medical Records Attestation: I reviewed the patient's medical records. <Tracey Tafoya PA-C - Last Filed: 07/10/25 22:39> Lab Data Attestation: I reviewed the patient's lab results. <Tracey Tafoya PA-C - Last Filed: 07/10/25 22:39> Result diagrams: 07/10/25 20:23 07/10/25 20:23 <Tracey Tafoya PA-C - Last Filed: 07/10/25 22:39> Labs: Lab Results 07/10/25 07/10/25 Range/Units 20:23 22:30 WBC 11.8 H (4.5-10.0) K/mm3 RBC 4.42 L (4.6-6.20) M/mm3 Hgb 13.6 L (14.0-18.0) g/dL Hct 40.8 L (42.0-52.0) % MCV 92.3 (80-100) fl MCH 30.8 (26-34) pg MCHC 33.3 (32-36) g/dl RDW 12.9 (11.5-14.5) % Plt Count 257 (150-375) k/mm3 MPV 10.1 (7.4-10.4) fl Immature Gran % (Auto) 0.3 (0-0.5) % Neut % (Auto) 79.5 H (45.5-73.1) % Lymph % (Auto) 11.7 L (18.3-44.2) % Teton % (Auto) 8.1 (2.6-8.5) % Eos % (Auto) 0.1 (0-4.4) % Baso % (Auto) 0.3 (0.2-1.2) % Lymph # (Auto) 1.38 (0.9-3.2) K/mm3 Teton # (Auto) 1.0 H (0.1-0.6) K/mm3 Eos # (Auto) 0.0 (0-0.3) K/mm3 Baso # (Auto) 0.0 (0.0-0.1) K/mm3 Abs Immat Gran (auto) 0.04 H (0.00-0.031) K/mm3 Absolute Neuts (auto) 9.4 H (1.3-6.7) K/mm3 Absolute Nucleated RBC 0.000 (0.0-0.012) K/mm3 Nucleated RBC % 0.0 (0.0-0.2) % ESR 18 (0-20) mm/hr Sodium 138 (137-145) mmol/L Potassium 4.1 (3.4-5.0) mmol/L Chloride 105 (98-107) mmol/L Carbon Dioxide 27 (22-30) mmol/L Anion Gap 6 (4-12) mmol/L BUN 25 H (9-20) mg/dL Creatinine 0.99 (0.7-1.3) mg/dL Estim Creat Clear Calc 66 ml/min Estimated GFR > 60 (59 - ) Glucose 152 H (65-110) mg/dL Lactic Acid 0.9 (0.7-2.0) mmol/L Uric Acid 3.5 (3.5-8.5) mg/dL Calcium 9.1 (8.4-10.2) mg/dL Total Bilirubin 0.4 (0.2-1.3) mg/dL AST 28 (17-59) U/L ALT 26 (6-50) U/L Alkaline Phosphatase 79 (38-126) U/L C-Reactive Protein 3.9 H (<1.0) mg/dL Total Protein 7.6 (6.3-8.2) g/dL Albumin 4.4 (3.5-5.1) g/dL Procalcitonin 0.0 ng/mL <Tracey Tafoya PA-C - Last Filed: 07/10/25 22:39> Lab Results 07/10/25 07/10/25 Range/Units 20:23 22:30 WBC 11.8 H (4.5-10.0) K/mm3 RBC 4.42 L (4.6-6.20) M/mm3 Hgb 13.6 L (14.0-18.0) g/dL Hct 40.8 L (42.0-52.0) % MCV 92.3 (80-100) fl MCH 30.8 (26-34) pg MCHC 33.3 (32-36) g/dl RDW 12.9 (11.5-14.5) % Plt Count 257 (150-375) k/mm3 MPV 10.1 (7.4-10.4) fl Immature Gran % (Auto) 0.3 (0-0.5) % Neut % (Auto) 79.5 H (45.5-73.1) % Lymph % (Auto) 11.7 L (18.3-44.2) % Teton % (Auto) 8.1 (2.6-8.5) % Eos % (Auto) 0.1 (0-4.4) % Baso % (Auto) 0.3 (0.2-1.2) % Lymph # (Auto) 1.38 (0.9-3.2) K/mm3 Teton # (Auto) 1.0 H (0.1-0.6) K/mm3 Eos # (Auto) 0.0 (0-0.3) K/mm3 Baso # (Auto) 0.0 (0.0-0.1) K/mm3 Abs Immat Gran (auto) 0.04 H (0.00-0.031) K/mm3 Absolute Neuts (auto) 9.4 H (1.3-6.7) K/mm3 Absolute Nucleated RBC 0.000 (0.0-0.012) K/mm3 Nucleated RBC % 0.0 (0.0-0.2) % ESR 18 (0-20) mm/hr Sodium 138 (137-145) mmol/L Potassium 4.1 (3.4-5.0) mmol/L Chloride 105 (98-107) mmol/L Carbon Dioxide 27 (22-30) mmol/L Anion Gap 6 (4-12) mmol/L BUN 25 H (9-20) mg/dL Creatinine 0.99 (0.7-1.3) mg/dL Estim Creat Clear Calc 66 ml/min Estimated GFR > 60 (59 - ) Glucose 152 H (65-110) mg/dL Lactic Acid 0.9 (0.7-2.0) mmol/L Uric Acid 3.5 (3.5-8.5) mg/dL Calcium 9.1 (8.4-10.2) mg/dL Total Bilirubin 0.4 (0.2-1.3) mg/dL AST 28 (17-59) U/L ALT 26 (6-50) U/L Alkaline Phosphatase 79 (38-126) U/L C-Reactive Protein 3.9 H (<1.0) mg/dL Total Protein 7.6 (6.3-8.2) g/dL Albumin 4.4 (3.5-5.1) g/dL Procalcitonin 0.0 ng/mL <Riley Lindsay MD - Last Filed: 07/10/25 22:50> Imaging Data Attestation: I personally reviewed and interpreted this imaging study as follows: < Tracey Tafoya PA-C - Last Filed: 07/10/25 22:39> My impression: XR R Wrist: Significant degenerative/erosive changes at 1st mcp. No acute fracture <Tracey Tafoya PA-C - Last Filed: 07/10/25 22:39> Radiologist's impression: STAT RAD XR R wrost no evidence of acute fracture dislocation. Severe base of the thumb arthrosis. CMC joint arthrosis and subchondral cystic changes. <Tracey Tafoya PA-C - Last Filed: 07/10/25 22:39> Discharge Plan Discharge Clinical Impression: Pain in right wrist Septic joint of right wrist Qualifiers: Septic arthritis organism: due to unspecified organism Qualified Code(s): M00.9 - Pyogenic arthritis, unspecified <MYCHAL Cunningham Last Filed: 07/10/25 22:39> Patient Disposition: Still a Patient <MYCHAL Cunningham Last Filed: 07/10/25 22:39> Condition: Stable <MYCHAL Cunningham Last Filed: 07/10/25 22:39> Patient Language: [place] Islander <MYCHAL Cunningham Last Filed: 07/10/25 22:39> Prescriptions: No Action Topical Pain Cream topical oxycodone 10 mg tablet 10 mg PO TID Gabapentin, Diclofenac, Ibuprophen, Pentoxifylline, Lidocaine, Amptriptline, cyclobenzaprine Cream transdermal Rx Instructions: Rub on affected area atorvastatin [Lipitor] 20 mg tablet 20 mg PO DAILY Qty: 90 3RF Narcan 4 mg/actuation spray,non-aerosol 4 mg intranasal PRN duloxetine 60 mg capsule,delayed release(DR/EC) See Rx Instructions .ROUTE .COMPLEX Qty: 90 1RF Dose Instruction: TAKE 1 CAPSULE BY MOUTH EVERY DAY. START WEEK 2 Rx Instructions: TAKE 1 CAPSULE BY MOUTH EVERY DAY. START WEEK 2 albuterol sulfate 90 mcg/actuation HFA aerosol inhaler See Rx Instructions .ROUTE .COMPLEX Qty: 18 3RF Dose Instruction: INHALE 1 PUFF BY MOUTH EVERY 4 HOURS Rx Instructions: INHALE 1 PUFF BY MOUTH EVERY 4 HOURS losartan 50 mg tablet See Rx Instructions .ROUTE .COMPLEX Qty: 90 1RF Dose Instruction: TAKE 1 TABLET BY MOUTH EVERY DAY Rx Instructions: TAKE 1 TABLET BY MOUTH EVERY DAY atenolol 25 mg tablet See Rx Instructions .ROUTE .COMPLEX Qty: 90 1RF Dose Instruction: TAKE 1 TABLET BY MOUTH EVERY DAY Rx Instructions: TAKE 1 TABLET BY MOUTH EVERY DAY amlodipine 10 mg tablet See Rx Instructions .ROUTE .COMPLEX Qty: 90 1RF Dose Instruction: TAKE 1 TABLEY BY MOUTH ONCE DAILY Rx Instructions: TAKE 1 TABLEY BY MOUTH ONCE DAILY <Tracey Tafoya PA-C - Last Filed: 07/10/25 22:39> Follow-up/Referrals: Leandro Pardo DO [Primary Care Provider, Internal Medicine] <Tracey Tafoya PA-C - Last Filed: 07/10/25 22:39>
[2025-07-10 20:29] LABS: Hematocrit 40.8 % (42.0-52.0); Hemoglobin 13.6 g/dL (14.0-18.0); Immature Granulocyte Percent A 0.3 % (0-0.5); Lymphocytes Absolute Auto 1.38 K/mm3 (0.9-3.2); Mean Corpuscular HGB Conc 33.3 g/dl (32-36); Mean Corpuscular Hemoglobin 30.8 pg (26-34); Mean Corpuscular Volume 92.3 fl (80-100); Nucleated Red Blood Cells Absolute Auto 0.000 K/mm3 (0.0-0.012); Nucleated Red Blood Cells Perc 0.0 % (0.0-0.2); Platelet Count Result 257 k/mm3 (150-375); Red Blood Count 4.42 M/mm3 (4.6-6.20); White Blood Count 11.8 K/mm3 (4.5-10.0)
[2025-07-10] MEDS: ONDANSETRON INJ 4 MG/2 ML VIAL IV PUSH (20:31)
[2025-07-10] MEDS: MORPHINE SULFATE (*CRX) 4 MG/ML INJ IV PUSH (20:33)
[2025-07-10] MEDS: COLCHICINE 0.6 MG TABLET 1.2 MG PO (20:36)
[2025-07-10 20:46] LABS: Alanine Aminotransferase 26 U/L (6-50); Albumin Level 4.4 g/dL (3.5-5.1); Alkaline Phosphatase 79 U/L (38-126); Anion Gap 6 mmol/L (4-12); Aspartate Amino Transferase 28 U/L (17-59); Bilirubin,Total 0.4 mg/dL (0.2-1.3); Blood Urea Nitrogen 25 mg/dL (9-20); CRP 3.9 mg/dL (<1.0); Calcium 9.1 mg/dL (8.4-10.2); Carbon Dioxide 27 mmol/L (22-30); Chloride 105 mmol/L (98-107); Estimated CRCL calculation 66 ml/min; Estimated Glomerular Filt Rate > 60; Glucose 152 mg/dL (65-110); Potassium 4.1 mmol/L (3.4-5.0); Sodium 138 mmol/L (137-145); Total Protein 7.6 g/dL (6.3-8.2); Uric Acid 3.5 mg/dL (3.5-8.5)
[2025-07-10 21:00] LABS: Procalcitonin 0.0 ng/mL
[2025-07-10 21:21] VITALS: BP 160/70; PULSE 94; RESP 20; TEMP 38.2; O2SAT 93
[2025-07-10] MEDS: ACETAMINOPHEN 325 MG TABLET 650 MG PO (21:25)
[2025-07-10] MEDS: COLCHICINE 0.6 MG TABLET PO (22:07)
[2025-07-10] MEDS: SODIUM CHLORIDE 0.9% IV 1,000 ML 999 ML IV CONT (22:09)
[2025-07-10] MEDS: ceFAZolin 2 GM in SODIUM CHLORIDE 0.9% IV 50 ML 100 ML IVPB (22:31)
[2025-07-10] MEDS: HYDROmorphone HCL INJ (*CRX) 1 MG/ML SYR 0.5 MG IV PUSH (22:54)
[2025-07-10] MEDS: KETOROLAC 30 MG/ML VIAL (*BKC) IV PUSH (22:54)
[2025-07-10 23:34] VITALS: BMI 31.4
[2025-07-10] MEDS: SODIUM CHLORIDE 0.9% IV 1,000 ML 500 ML IV CONT (23:35)
[2025-07-10 23:37] VITALS: BMI 31.2
[2025-07-10 23:40] VITALS: BP 155/97; PULSE 96; RESP 20; TEMP 37.4; O2SAT 94
--- NOTE | 2025-07-10 23:40 | ADMGEN ---
This patient, Valentin Navarro, was admitted to Medical Room 349-01. Patient/family oriented to hospital policies and general routines including ID bracelet, bed and alarms, visiting hours, pain management, procedures, bathroom and other care routines, personal items, smoking policy, room service/diet, and visiting hours. Information on how to activate the Rapid Response Team has been discussed. Patient/Family are encouraged to report perceived risks to care and to ask questions if they do not understand what they are told or what they should do.
[2025-07-10] MEDS: oxyCODONE HCL (*CRX) 5 MG TAB IR 10 MG PO (23:48)
--- NOTE | 2025-07-10 23:50 | PM.IMHP ---
H&P: HPI History of Present Illness Date/Time: 07/10/25 23:50 Chief Complaint: Right wrist pain Narrative: 70-year-old male with a past medical history diastolic dysfunction, essential hypertension, hyperlipidemia, chronic narcotic dependence due to chronic neck and back pain and prior hospitalization in 2019 pseudo gout flare of the right wrist who presented to the ER via private vehicle due to 3 days of worsening wrist pain with concerns that he is having a ?gout flare?. He reports that he has had issues with intermittent pain of the wrist on and off for months. But usually the pain will be more mild and will last for a day or so and resolve. The patient had taken his home oxycodone and I have report without any relief in his pain. Reports the pain is 10/10 in intensity. He has decreased range of motion due to pain. He denies any known injury to the wrist. He has had increased swelling for the last 2 days and increased warmth for the last day. He denied any subjective fevers or chills. He was hospitalized in December 2019 for similar symptoms and was admitted for rule out septic arthritis in found to have pseudogout. He reports that his symptoms are similar to his last hospitalization including low-grade fever. His T-max in the ER was 100.8. His CRP and white count was mildly elevated but he had a normal ESR. He was mildly tachycardic but had normal blood pressures. He did receive 4 mg of morphine and 1 L of IV fluids as well as a dose of Zofran. He also received 2 doses of colchicine. He reports that his pain after arriving to the medical floor is still an 8/10 in intensity. He reports that the pain is worse with extension of his wrist. He has mildly better range of motion with flexion of his wrist but still has some pain. He reports that he has pain if he receives pressure to the tips of the fingers. He has pain with both active and passive range of motion of both the wrist and fingers. Despite being on chronic narcotic therapy does not usually have constipation and reports his last bowel movement was today. He does have history of BPH but is not on any prostate medications. He usually has to get up each hour at night to urinate. He reports weak urinary stream but denies sensation of incomplete bladder emptying. He has chronic wheezing. He still continues to smoke a little less than a pack of cigarettes a day. He states that he is trying to quit and will often not smoke for a day or 2 and then slip up in smoke and entire pack of cigarettes. He reports that the pain in his wrist had become so bad recently that he did not know what to do about the pain so he actually drink a shot of whiskey. He states that he used to drink a handle of whiskey a week but has not done so in many years. Does also smoke marijuana for his pain management. He does have a history of obstructive sleep apnea but never followed up for CPAP titration. He denies any increased shortness of breath, orthopnea or lower extremity edema. Marland was initially ordered in the ER but he did not receive this. Also there was an order for Lasix that was mistakenly entered in not administered. Review of Systems Review of Systems: 12 systems were reviewed with pertinent positives and negatives per HPI. Except as documented in the HPI, all other systems were reviewed and are negative. [facility] Past Medical History Medical History (Updated 07/11/25 @ 01:02 by Lorrie Loco DO) BPH (benign prostatic hyperplasia) Alcohol dependence syndrome The patient has drink as much as a handle (1.7 L) 0 week in the distant past. He denies history of heavy alcohol use in a long time but has been struggling with episodic use Obstructive sleep apnea Essential hypertension Heart murmur on physical examination Echocardiogram 05/2021: EF 60-65% diastolic dysfunction grade 1 E/E 8 is minimally elevated, mild biatrial enlargement, trace tricuspid regurgitation Lumbar back pain Peripheral neuropathy Panic anxiety syndrome History of tuberculosis Atherosclerosis of aorta History of hepatitis C Neuropathy Asthma Peripheral arterial disease Chronic pain syndrome Celiac artery dissection Seasonal allergies Arthritis Sleep apnea Anxiety COPD (chronic obstructive pulmonary disease) Hyperlipidemia Pseudogout of left wrist Erectile dysfunction Anemia Encounter for monitoring testosterone replacement therapy Depression Low testosterone in male Surgical History Surgical History History of arthroplasty of left shoulder History of carpal tunnel release Left hand, right hand 03/2022 H/O foot surgery 3 surgeries R foot, 2 surgeries L foot S/P foot surgery, right H/O shoulder surgery History of back surgery 07/07/2021 H/O neck surgery Family History Family History Grandparent Diabetes mellitus Sibling Family history of cardiovascular disease Mother Family history of primary malignant neoplasm of liver Alcoholism Father Alcoholism Other Arthritis Family history of alcoholism Family history of attention deficit hyperactivity disorder (ADHD) Family history of rheumatoid arthritis Hypertension Social History Social History (Updated 07/11/25 @ 00:50 by Lorrie Loco, ) Social History: The patient stated that he lives with his they have been for 42 years. They raised 2 sons. 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 He has smoked up to a pack of cigarettes per day since he was a teenager. He has been actively trying to quit for the last several years. He used to drink up to 1.7 L of whiskey a week but has not drink heavily for many years. He still has some episodic use of ?a shot here there?. He smokes marijuana couple times a week to help with his pain. Code status: Full code Surrogate decision maker: Smoking packs per day: 1 Smoking cigarettes per day: 20.0 Years smoked: 44 Smoking pack-years: 44.00 Smoking status: Current every day smoker Tobacco type: cigarettes Second hand tobacco smoke exposure: Yes Alcohol intake: former Alcohol use details: Up to 1.75 L a week Substance use: current Substance use type: marijuana Other substance usage details: leaf; has MMJ card Do You Feel Safe in your Home?: Yes Lack of Transportation: No Lack of Food: Sometimes True Current Housing: I Have Housing Concerned About Future Housing: No Difficulty Paying Gas/Electric Bills: YES Difficulty Paying for Meds: No Currently Unemployed: No Education: High School Diploma/GED Difficulty w/ Childcare or Family Care: No Living arrangements: with family Occupation/Education: occupation Additional occupation/education comments: [employer], self employed Gender identity (if verbalized by the patient): Male Spiritual care concerns: No Agree to blood products: Yes Meds Home Medications and Allergies Home Medications ?Medication ?Instructions ?Recorded ?Confirmed ?Type naloxone 4 mg/actuation nasal 4 mg intranasal PRN 01/12/20 07/10/25 History spray (Narcan) oxycodone 10 mg tablet 10 mg PO TID 11/13/22 07/10/25 History Gabapentin, Diclofenac, See Rx Instructions transdermal 11/30/24 07/10/25 History Ibuprophen, Pentoxifylline, .COMPLEX PRN neuropathy Lidocaine, Amptriptline, cyclobenzaprine Cream duloxetine 60 mg capsule,delayed See Rx Instructions .Route 01/21/25 07/10/25 Rx release .COMPLEX #90 caps albuterol sulfate 90 mcg/actuation See Rx Instructions .Route 03/02/25 07/10/25 Rx aerosol inhaler .COMPLEX #18 ea atorvastatin 20 mg tablet (Lipitor) 20 mg PO DAILY #90 tabs 03/08/25 07/10/25 Rx losartan 50 mg tablet See Rx Instructions .Route 05/10/25 07/10/25 Rx .COMPLEX #90 tabs atenolol 25 mg tablet See Rx Instructions .Route 05/18/25 07/10/25 Rx .COMPLEX #90 tabs amlodipine 10 mg tablet See Rx Instructions .Route 06/16/25 07/10/25 Rx .COMPLEX #90 tabs Allergies Allergy/AdvReac Type Severity Reaction Status Date / Time lisinopril Allergy Swelling Verified 07/10/25 23:40 of Lip/Tongue/Throat Vital Signs Vital Signs - 24 hr 07/10/25 19:41 07/10/25 19:48 07/10/25 21:21 Temperature 99.0 F 100.8 F H Pulse Rate 100 93 94 Respiratory Rate 18 20 20 Blood Pressure 171/68 H 158/86 H 160/70 H Pulse Oximetry 97 95 93 Oxygen Delivery Room Air Exam Narrative: Weight 93.6 kg BMI 31.4 Const: Other: Obese, no acute distress, appears older than stated age, disheveled HENMT: Other: Mucous membranes are moist, no oral pharyngeal erythema, edentulous in the upper jaw Eyes: Other: Pupils are equal and reactive, no scleral icterus Neck: Other: Large neck circumference, no JVD, right shotty anterior cervical lymphadenopathy Resp: Other: Expiratory wheezing bilateral posterior lung prabhakar, no increased work of breathing, no tachypnea Cardio: Other: Regular rate, regular rhythm, 2+ bilateral radial pedal pulses, no JVD GI: Other: Obese, distended soft, nontender, normoactive bowel sounds Skin: Other: Increased warmth over the dorsal surface of the right hand, no rashes or overt erythema Neuro: Other: Alert oriented, speech is clear, no facial asymmetry Extrem: Other: (right-sided close) Decreased range of motion on both flexion of the fingers and extension of the fingers with both passive and active range of motion with more marked tenderness on flexion of the wrist patient is not able to extend the wrist at all, pain also involves the flexion of the thumb inward, edema to the dorsal aspect of the left wrist with more point tenderness to the lateral portions of the dorsal wrist, he has localizing warmth to the right wrist compared to the left Psych: Other: Normal thought process and content, dysphoric affect, intact judgment and insight H&P: Results Labs Labs: Laboratory Tests 07/10/25 20:23 07/10/25 20:23 07/10/25 07/10/25 20:23 22:30 WBC 11.8 H RBC 4.42 L Hgb 13.6 L Hct 40.8 L MCV 92.3 MCH 30.8 MCHC 33.3 RDW 12.9 Plt Count 257 MPV 10.1 Immature Gran % (Auto) 0.3 Neut % (Auto) 79.5 H Lymph % (Auto) 11.7 L [place] % (Auto) 8.1 Eos % (Auto) 0.1 Baso % (Auto) 0.3 Lymph # (Auto) 1.38 [place] # (Auto) 1.0 H Eos # (Auto) 0.0 Baso # (Auto) 0.0 Abs Immat Gran (auto) 0.04 H Absolute Neuts (auto) 9.4 H Absolute Nucleated RBC 0.000 Nucleated RBC % 0.0 ESR 18 Sodium 138 Potassium 4.1 Chloride 105 Carbon Dioxide 27 Anion Gap 6 BUN 25 H Creatinine 0.99 Estim Creat Clear Calc 66 Estimated GFR > 60 Glucose 152 H Lactic Acid Pending Uric Acid 3.5 Calcium 9.1 Total Bilirubin 0.4 AST 28 ALT 26 Alkaline Phosphatase 79 C-Reactive Protein 3.9 H Total Protein 7.6 Albumin 4.4 Procalcitonin 0.0 X-rays of the wrist reviewed no obvious fracture or deformity. No obvious Swelling or joint erosion to suggest osteomyelitis. Radiologic interpretation pending. Assessment and Plan Assessment and plan (1) Septic joint of right wrist: Qualifiers: Septic arthritis organism: due to unspecified organism Qualified Code(s): M00.9 - Pyogenic arthritis, unspecified Code(s): M00.9 - Pyogenic arthritis, unspecified Status: Acute (2) Sepsis: Qualifiers: Sepsis acute organ dysfunction status: without acute organ dysfunction Sepsis type: sepsis due to unspecified organism Qualified Code(s): A41.9 - Sepsis, unspecified organism Code(s): A41.9 - Sepsis, unspecified organism Status: Acute (3) Pseudogout: Code(s): M11.20 - Other chondrocalcinosis, unspecified site Status: Acute (4) Pain in right wrist: Code(s): M25.531 - Pain in right wrist Status: Acute (5) Chronic pain syndrome: Code(s): G89.4 - Chronic pain syndrome Status: Acute (6) Essential hypertension: Code(s): I10 - Essential (primary) hypertension Status: Acute (7) Tobacco abuse: Code(s): Z72.0 - Tobacco use Status: Acute (8) BPH (benign prostatic hyperplasia): Qualifiers: Lower urinary tract symptom presence: symptoms present Lower urinary tract symptom detail: urinary frequency Qualified Code(s): N40.1 - Benign prostatic hyperplasia with lower urinary tract symptoms; R35.0 - Frequency of micturition Code(s): N40.0 - Benign prostatic hyperplasia without lower urinary tract symptoms Status: Acute Plan Patient has fever with pain and swelling of the right wrist concerning for possible septic arthritis versus pseudogout flare. Patient does fit mild SIRS criteria with temperature of 100.8?, leukocytosis and tachycardia with heart rate up to 100 in the setting of possible infection meets criteria for sepsis. Patient received 1 L fluid bolus in the ER I requested the patient received additional IV fluids he is getting an additional 1 L at 500 mL an hour. ESR is normal but CRP is mildly elevated suggesting infection or inflammation. Will check procalcitonin and lactic acid as well as blood cultures. Orthopedic surgery was consulted from the ER and recommended patient be started on Ancef. Patient will be made NPO at midnight for possible surgical procedure. Given that the patient will have increased doses of pain medications will start patient on scheduled Colace. Will also add Narcan as needed if symptoms of over sedation. Patient has chronic hypertension but blood pressures are stable. Will continue home antihypertensives. Patient does continue to smoke and states that he has been trying to quit he will frequently quit smoking for 2 or 3 days and then will slip up in smoke a pack a day for a couple of weeks before stopping again. He does not desire to have nicotine patch at this time. 10 minutes was spent in tobacco cessation education. The patient does have history of BPH but states that he feels like the medications he was on for BPH cause more symptoms. He does not want to be started on a different medication for his prostate. Will monitor for signs of possible urinary retention given increased narcotic use. Patient has been admitted as observation status. MEDICAL DECISION MAKING NARRATIVE -Spoke with the ED provider in detail regarding patient's evaluation, workup and management -Patient seen and examined at bedside -Collaborated with patient's nurse at the bedside in detail and addressed all concerns -Labs, electrolytes, radiology, investigations and test results personally reviewed and interpreted unless otherwise specified -ED/Consult/Nursing/Ancilliary notes on the chart reviewed and appreciated -Spoke with patient at bedside and diagnosis and plan of care was discussed. All questions answered. Quality VTE Prophylaxis VTE prophylaxis: pharmacologic ordered (Lovenox 40 mg subQ daily.) Hospitalist MIPS Advance Care Plan I have confirmed that the patient's Advanced Care Plan is present, code status is documented, or surrogate decision maker is listed in patient medical record.: Yes Medication Reconciliation I have utilized all available resources to obtain, update and review the patients current medications (includes all prescriptions, OTC, herbals, cannabis, and nutritional supplements).: Yes
[2025-07-11 00:54] LABS: MRSA (PCR) NOT DETECTED (NOT DETECTE)
[2025-07-11] MEDS: HYDROmorphone HCL INJ (*CRX) 1 MG/ML SYR IV PUSH (01:58)
[2025-07-11 05:13] LABS: Hematocrit 36.2 % (42.0-52.0); Hemoglobin 12.0 g/dL (14.0-18.0); Immature Granulocyte Percent A 0.4 % (0-0.5); Lymphocytes Absolute Auto 2.84 K/mm3 (0.9-3.2); Mean Corpuscular HGB Conc 33.1 g/dl (32-36); Mean Corpuscular Hemoglobin 31.3 pg (26-34); Mean Corpuscular Volume 94.5 fl (80-100); Nucleated Red Blood Cells Absolute Auto 0.000 K/mm3 (0.0-0.012); Nucleated Red Blood Cells Perc 0.0 % (0.0-0.2); Platelet Count Result 214 k/mm3 (150-375); Red Blood Count 3.83 M/mm3 (4.6-6.20); White Blood Count 11.0 K/mm3 (4.5-10.0)
[2025-07-11 05:14] VITALS: BP 139/55; PULSE 63; RESP 16; TEMP 36.2; O2SAT 94
[2025-07-11] MEDS: ENOXAPARIN 40 MG/0.4 ML SYRINGE SUB-Q (09:26)
[2025-07-11 09:27] VITALS: PULSE 69
[2025-07-11] MEDS: DULoxetine HCL 60 MG CAPSULE.DR PO (09:27)
[2025-07-11] MEDS: ATORVASTATIN 20 MG TABLET PO (09:27)
[2025-07-11] MEDS: LOSARTAN POTASSIUM 50 MG TABLET PO (09:28)
[2025-07-11] MEDS: DOCUSATE SODIUM 100 MG CAPSULE PO ×2 (09:28→22:00)
--- NOTE | 2025-07-11 10:15 | P.CONOP_ITS ---
Assessment and Plan Assessment and plan (1) Pain in right wrist: Code(s): M25.531 - Pain in right wrist Status: Acute Plan 70-year-old male with a past medical history significant for Left Wrist pseudogout in 2019. Admitted and treated for pain with spontaneous resolution. He reports same symptoms that started Wed this week (4 days ago) but now with RIGHT wrist. No fevers or chills. No Nausea. No history of insect bites. Retried jorge. Does not do too much with hands these days due to multiple orthopedic procedures. Patient is already improving this morning with decrease in Right Wrist Pain and swelling. Good appetite without nausea Presumptive diagnosis is pseudogout. Treatment with anti-inflammotory medications, splinting and ice to the Right Wrist. Low probability for Septic Joint. Recommend daily CRP and CBC with ESR. Follow up with my office 1 week after discharge. History of Present Illness HPI Consult date: 07/11/25 Chief complaint: possible septic arthritis R wrist Narrative: 70-year-old male with a past medical history significant for Left Wrist pseudogout in 2019. Admitted and treated for pain with spontaneous resolution. He reports same symptoms that started Wed this week (4 days ago) but now with RIGHT wrist. No fevers or chills. No Nausea. No history of insect bites. Retried jorge. Does not do too much with hands these days due to multiple orthopedic procedures. [facility] Past Medical History Medical History (Updated 07/11/25 @ 01:02 by Lorrie Loco DO) BPH (benign prostatic hyperplasia) Alcohol dependence syndrome The patient has drink as much as a handle (1.7 L) 0 week in the distant past. He denies history of heavy alcohol use in a long time but has been struggling with episodic use Obstructive sleep apnea Essential hypertension Heart murmur on physical examination Echocardiogram 05/2021: EF 60-65% diastolic dysfunction grade 1 E/E 8 is minimally elevated, mild biatrial enlargement, trace tricuspid regurgitation Lumbar back pain Peripheral neuropathy Panic anxiety syndrome History of tuberculosis Atherosclerosis of aorta History of hepatitis C Neuropathy Asthma Peripheral arterial disease Chronic pain syndrome Celiac artery dissection Seasonal allergies Arthritis Sleep apnea Anxiety COPD (chronic obstructive pulmonary disease) Hyperlipidemia Pseudogout of left wrist Erectile dysfunction Anemia Encounter for monitoring testosterone replacement therapy Depression Low testosterone in male Surgical History Surgical History History of arthroplasty of left shoulder History of carpal tunnel release Left hand, right hand 03/2022 H/O foot surgery 3 surgeries R foot, 2 surgeries L foot S/P foot surgery, right H/O shoulder surgery History of back surgery 07/07/2021 H/O neck surgery Family History Family History Grandparent Diabetes mellitus Sibling Family history of cardiovascular disease Mother Family history of primary malignant neoplasm of liver Alcoholism Father Alcoholism Other Arthritis Family history of alcoholism Family history of attention deficit hyperactivity disorder (ADHD) Family history of rheumatoid arthritis Hypertension Social History Social History (Updated 07/11/25 @ 00:50 by Lorrie Loco DO) Social History: The patient stated that he lives with his they have been for 42 years. They raised 2 sons. 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 He has smoked up to a pack of cigarettes per day since he was a teenager. He has been actively trying to quit for the last several years. He used to drink up to 1.7 L of whiskey a week but has not drink heavily for many years. He still has some episodic use of ?a shot here there?. He smokes marijuana couple times a week to help with his pain. Code status: Full code Surrogate decision maker: Smoking packs per day: 1 Smoking cigarettes per day: 20.0 Years smoked: 44 Smoking pack-years: 44.00 Smoking status: Current every day smoker Tobacco type: cigarettes Second hand tobacco smoke exposure: Yes Alcohol intake: former Alcohol use details: Up to 1.75 L a week Substance use: current Substance use type: marijuana Other substance usage details: leaf; has MMJ card Do You Feel Safe in your Home?: Yes Lack of Transportation: No Lack of Food: Sometimes True Current Housing: I Have Housing Concerned About Future Housing: No Difficulty Paying Gas/Electric Bills: YES Difficulty Paying for Meds: No Currently Unemployed: No Education: High School Diploma/GED Difficulty w/ Childcare or Family Care: No Living arrangements: with family Occupation/Education: occupation Additional occupation/education comments: [employer], self employed Gender identity (if verbalized by the patient): Male Spiritual care concerns: No Agree to blood products: Yes Meds Home Medications and Allergies Home Medications ?Medication ?Instructions ?Recorded ?Confirmed ?Type naloxone 4 mg/actuation nasal 4 mg intranasal PRN 12/1607/10/25 History spray (Narcan) oxycodone 10 mg tablet 10 mg PO TID 11/13/22 History Gabapentin, Diclofenac, See Rx Instructions transder mal 11/30/24 07/10/25 History Ibuprophen, Pentoxifylline, .COMPLEX PRN neuropathy Lidocaine, Amptriptline, cyclobenzaprine Cream duloxetine 60 mg capsule,delayed See Rx Instructions . Route 01/21/25 07/10/25 Rx release .COMPLEX #90 caps albuterol sulfate 90 mcg/actuation See Rx Instructions .Route 03/02/25 07/10/25 Rx aerosol inhaler .COMPLEX #18 ea atorvastatin 20 mg tablet (Lipitor) 20 mg PO DAILY #90 tabs 03/08/25 07/10/25 Rx losartan 50 mg tablet See Rx Instructions .Route 0 05/10/25 07/10/25 Rx .COMPLEX #90 tabs atenolol 25 mg tablet See Rx Instructions .Route 0 05/18/25 07/10/25 Rx .COMPLEX #90 tabs amlodipine 10 mg tablet See Rx Instructions .Route 1 07/10/25 Rx .COMPLEX #90 tabs Allergies Allergy/AdvReac Type Severity Reaction Status Date / Time lisinopril Allergy Swelling Verified 07/10/25 23:40 of Lip/Tongue/Throat Vital Signs Vital Signs - 24 hr 07/10/25 19:41 07/10/25 19:48 07/10/25 21:21 Temperature 37.2 C 38.2 C H Pulse Rate 100 93 94 Respiratory Rate 18 20 20 Blood Pressure 171/68 H 158/86 H 160/70 H Pulse Oximetry 97 95 93 Oxygen Delivery Room Air 07/10/25 23:40 07/11/25 00:01 07/11/25 05:14 Temperature 37.4 C 36.2 C L Pulse Rate 96 63 Respiratory Rate 20 16 Blood Pressure 155/97 H 139/55 L Pulse Oximetry 94 94 Oxygen Delivery Room Air 07/11/25 09:27 Temperature Pulse Rate 69 Respiratory Rate Blood Pressure Pulse Oximetry Oxygen Delivery Exam 2 Narrative: Patient was resting comfortably this morning and reports decrease in Right Wrist pain and swelling. He is hungry. Exam of Right Wrist shows moderate erythema, and swelling with minimal tenderness noted over the dorsum of the Right Wrist. - moderate pain with passive range of mo tion of the Right Wrist. No pain with PROM of the MCP or of the IP of all digits. - area of involvement is centered over t he Index metacarpal. Const: General: cooperative, comfortable, no acute distress, well developed, alert and awake Nutritional Appearance: average body habitus and well nourished Orientation/consciousness: oriented to person, oriented to place and oriented to time Results Labs 07/11/25 05:05 07/10/25 20:23 Labs: Abnormal lab results 07/10/25 07/11/25 Range/Units 20:23 05:05 WBC 11.8 H 11.0 H (4.5-10.0) K/mm3 RBC 4.42 L 3.83 L (4.6-6.20) M/mm3 Hgb 13.6 L 12.0 L (14.0-18.0) g/dL Hct 40.8 L 36.2 L (42.0-52.0) % Neut % (Auto) 79.5 H (45.5-73.1) % Lymph % (Auto) 11.7 L (18.3-44.2) % [place] % (Auto) 11.7 H (2.6-8.5) % [place] # (Auto) 1.0 H 1.3 H (0.1-0.6) K/mm3 Abs Immat Gran (auto) 0.04 H 0.04 H (0.00-0.031) K/mm3 Absolute Neuts (auto) 9.4 H 6.8 H (1.3-6.7) K/mm3 BUN 25 H (9-20) mg/dL Glucose 152 H (65-110) mg/dL C-Reactive Protein 3.9 H (<1.0) mg/dL H & H 07/10/25 07/11/25 Range/Units 20:23 05:05 Hgb 13.6 L 12.0 L (14.0-18.0) g/dL Hct 40.8 L 36.2 L (42.0-52.0) % All other labs normal.
[2025-07-11] MEDS: ONDANSETRON INJ 4 MG/2 ML VIAL IV PUSH (11:47)
[2025-07-11 14:00] VITALS: BP 134/63; PULSE 64; RESP 16; TEMP 36.8; O2SAT 96
--- NOTE | 2025-07-11 14:09 | PM.IMPN ---
Progress Note: A&P Assessment and Plan (1) Septic joint of right wrist: Qualifiers: Septic arthritis organism: due to unspecified organism Qualified Code(s): M00.9 - Pyogenic arthritis, unspecified Code(s): M00.9 - Pyogenic arthritis, unspecified Status: Acute (2) Sepsis: Qualifiers: Sepsis type: sepsis due to unspecified organism Sepsis acute organ dysfunction status: without acute organ dysfunction Qualified Code(s): A41.9 - Sepsis, unspecified organism Code(s): A41.9 - Sepsis, unspecified organism Status: Acute (3) Pseudogout: Code(s): M11.20 - Other chondrocalcinosis, unspecified site Status: Acute (4) Pain in right wrist: Code(s): M25.531 - Pain in right wrist Status: Acute (5) Chronic pain syndrome: Code(s): G89.4 - Chronic pain syndrome Status: Acute (6) Essential hypertension: Code(s): I10 - Essential (primary) hypertension Status: Acute (7) Tobacco abuse: Code(s): Z72.0 - Tobacco use Status: Acute (8) BPH (benign prostatic hyperplasia): Qualifiers: Lower urinary tract symptom presence: symptoms present Lower urinary tract symptom detail: urinary frequency Qualified Code(s): N40.1 - Benign prostatic hyperplasia with lower urinary tract symptoms; R35.0 - Frequency of micturition Code(s): N40.0 - Benign prostatic hyperplasia without lower urinary tract symptoms Status: Acute Plan Patient has fever with pain and swelling of the right wrist concerning for possible septic arthritis versus pseudogout flare. Patient does fit mild SIRS criteria with temperature of 100.8?, leukocytosis and tachycardia with heart rate up to 100 in the setting of possible infection meets criteria for sepsis. Patient received 1 L fluid bolus in the ER I requested the patient received additional IV fluids he is getting an additional 1 L at 500 mL an hour. ESR is normal but CRP is mildly elevated suggesting infection or inflammation. Will check procalcitonin and lactic acid as well as blood cultures. Orthopedic surgery was consulted from the ER and recommended patient be started on Ancef. Patient will be made NPO at midnight for possible surgical procedure. Given that the patient will have increased doses of pain medications will start patient on scheduled Colace. Will also add Narcan as needed if symptoms of over sedation. Patient has chronic hypertension but blood pressures are stable. Will continue home antihypertensives. Patient does continue to smoke and states that he has been trying to quit he will frequently quit smoking for 2 or 3 days and then will slip up in smoke a pack a day for a couple of weeks before stopping again. He does not desire to have nicotine patch at this time. 10 minutes was spent in tobacco cessation education. The patient does have history of BPH but states that he feels like the medications he was on for BPH cause more symptoms. He does not want to be started on a different medication for his prostate. Will monitor for signs of possible urinary retention given increased narcotic use. Patient presented with pain in his right wrist without any trauma, seen by an orthopedics and suspect patient has pseudogout as patient had a similar episode in left wrist in 2019 and unlikely septic arthritis and does not need any surgical intervention, patient uric acid levels are normal, being treated with pain medication and his symptoms are improving. will monitor and possible discharge patient home tomorrow. Subjective Date/time seen: 07/11/25 14:09 Interval history: Right wrist pain H&P-Narrative: 70-year-old male with a past medical history diastolic dysfunction, essential hypertension, hyperlipidemia, chronic narcotic dependence due to chronic neck and back pain and prior hospitalization in 2019 pseudo gout flare of the right wrist who presented to the ER via private vehicle due to 3 days of worsening wrist pain with concerns that he is having a ?gout flare?. He reports that he has had issues with intermittent pain of the wrist on and off for months. But usually the pain will be more mild and will last for a day or so and resolve. The patient had taken his home oxycodone and I have report without any relief in his pain. Reports the pain is 10/10 in intensity. He has decreased range of motion due to pain. He denies any known injury to the wrist. He has had increased swelling for the last 2 days and increased warmth for the last day. He denied any subjective fevers or chills. He was hospitalized in December 2019 for similar symptoms and was admitted for rule out septic arthritis in found to have pseudogout. He reports that his symptoms are similar to his last hospitalization including low-grade fever. His T-max in the ER was 100.8. His CRP and white count was mildly elevated but he had a normal ESR. He was mildly tachycardic but had normal blood pressures. He did receive 4 mg of morphine and 1 L of IV fluids as well as a dose of Zofran. He also received 2 doses of colchicine. He reports that his pain after arriving to the medical floor is still an 8/10 in intensity. He reports that the pain is worse with extension of his wrist. He has mildly better range of motion with flexion of his wrist but still has some pain. He reports that he has pain if he receives pressure to the tips of the fingers. He has pain with both active and passive range of motion of both the wrist and fingers. Despite being on chronic narcotic therapy does not usually have constipation and reports his last bowel movement was today. He does have history of BPH but is not on any prostate medications. He usually has to get up each hour at night to urinate. He reports weak urinary stream but denies sensation of incomplete bladder emptying. He has chronic wheezing. He still continues to smoke a little less than a pack of cigarettes a day. He states that he is trying to quit and will often not smoke for a day or 2 and then slip up in smoke and entire pack of cigarettes. He reports that the pain in his wrist had become so bad recently that he did not know what to do about the pain so he actually drink a shot of whiskey. He states that he used to drink a handle of whiskey a week but has not done so in many years. Does also smoke marijuana for his pain management. He does have a history of obstructive sleep apnea but never followed up for CPAP titration. He denies any increased shortness of breath, orthopnea or lower extremity edema. Patient presented with pain in his right wrist without any trauma, seen by an orthopedics and suspect patient has pseudogout as patient had a similar episode in left wrist in 2019 and unlikely septic arthritis and does not need any surgical intervention, patient uric acid levels are normal, being treated with pain medication and his symptoms are improving. will monitor and possible discharge patient home tomorrow. Review of Systems Review of Systems: 12 systems were reviewed with pertinent positives and negatives per HPI. Except as documented in the HPI, all other systems were reviewed and are negative. Exam Narrative: Patient is comfortable, NAD HEENT: eyes are clear and none icteric LUNGS:CTA HEART: RR S1S2 ABD: BS+, Soft and nontender Lower extremities: no edema SKIN: nonjaundiced Neuro: grossly intact. Objective Data Vital Signs Vital Signs: Vital Signs - 24 hr 07/10/25 19:41 07/10/25 19:48 07/10/25 21:21 Temperature 37.2 C 38.2 C H Pulse Rate 100 93 94 Respiratory Rate 18 20 20 Blood Pressure 171/68 H 158/86 H 160/70 H Pulse Oximetry 97 95 93 Oxygen Delivery Room Air 07/10/25 23:40 07/11/25 00:01 07/11/25 05:14 Temperature 37.4 C 36.2 C L Pulse Rate 96 63 Respiratory Rate 20 16 Blood Pressure 155/97 H 139/55 L Pulse Oximetry 94 94 Oxygen Delivery Room Air 07/11/25 09:27 Temperature Pulse Rate 69 Respiratory Rate Blood Pressure Pulse Oximetry Oxygen Delivery Intake/Output Intake/Output: Intake & Output 07/08/25 07/09/25 07/10/25 07/11/25 23:59 23:59 23:59 23:59 Intake Total 1050 Balance 1050 Meds/Results Medications: Active Medications Generic Name Dose Route Start Last Admin Trade Name Freq PRN Reason Stop Dose Admin Acetaminophen 650 mg 07/10/25 22:17 Acetaminophen 325 Mg Tablet PO Q4H PRN Mild Pain (1-3) or Fever Amlodipine Besylate 5 mg 07/11/25 09:00 07/11/25 09:27 Amlodipine Besylate 5 Mg Tablet PO 5 mg DAILY GAGAN Administration Atenolol 25 mg 07/11/25 09:00 07/11/25 09:27 Atenolol 25 Mg Tablet PO 25 mg DAILY GAGAN Administration Atorvastatin Calcium 20 mg 07/11/25 09:00 07/11/25 09:27 Atorvastatin 20 Mg Tablet PO 20 mg DAILY GAGAN Administration Calcium Carbonate 200 mg 07/11/25 00:53 Calcium Carbonate (Tums) 500 Mg (200 Mg Elemental) PO Q6H PRN Indigestion Docusate Sodium 100 mg 07/11/25 09:00 07/11/25 09:28 Docusate Sodium 100 Mg Capsule PO 100 mg Q12HR GAGAN Administration Duloxetine HCl 60 mg 07/11/25 09:00 07/11/25 09:27 Duloxetine Hcl 60 Mg Capsule.Dr PO 60 mg DAILY GAGAN Administration Enoxaparin Sodium 40 mg 07/11/25 09:00 07/11/25 09:26 Enoxaparin 40 Mg/0.4 Ml Syringe SUB-Q 40 mg DAILY GAGAN Administration Hydromorphone HCl 1 mg 07/10/25 22:16 07/11/25 01:58 Hydromorphone Hcl Inj (*Crx) 1 Mg/Ml Syr IV PUSH 1 mg Q3H PRN Administration Breakthrough Pain Cefazolin Sodium 2 gm/ Sodium 50 mls @ 100 mls/hr 07/11/25 06:00 07/11/25 10:36 Chloride IVPB Not Given Q8H GAGAN Losartan Potassium 50 mg 07/11/25 09:00 07/11/25 09:28 Losartan Potassium 50 Mg Tablet PO 50 mg DAILY GAGAN Administration Naloxone HCl 0.1 mg 07/10/25 22:18 Naloxone Hcl 0.4 Mg/Ml Vial IV PUSH Q5MIN PRN Narcotic overdose Ondansetron HCl 4 mg 07/10/25 22:17 07/11/25 11:47 Ondansetron Inj 4 Mg/2 Ml Vial IV PUSH 4 mg Q4H PRN Administration Nausea Oxycodone HCl 10 mg 07/10/25 22:17 07/10/25 23:48 Oxycodone Hcl (*Crx) 5 Mg Tab Ir PO 10 mg Q4H PRN Administration Pain Rated 7-10 Labs Labs: Laboratory Results - last 24 hr 07/10/25 07/10/25 07/10/25 20:23 22:30 23:33 WBC 11.8 H RBC 4.42 L Hgb 13.6 L Hct 40.8 L MCV 92.3 MCH 30.8 MCHC 33.3 RDW 12.9 Plt Count 257 MPV 10.1 Immature Gran % (Auto) 0.3 Neut % (Auto) 79.5 H Lymph % (Auto) 11.7 L [place] % (Auto) 8.1 Eos % (Auto) 0.1 Baso % (Auto) 0.3 Lymph # (Auto) 1.38 [place] # (Auto) 1.0 H Eos # (Auto) 0.0 Baso # (Auto) 0.0 Abs Immat Gran (auto) 0.04 H Absolute Neuts (auto) 9.4 H Absolute Nucleated RBC 0.000 Nucleated RBC % 0.0 ESR 18 Sodium 138 Potassium 4.1 Chloride 105 Carbon Dioxide 27 Anion Gap 6 BUN 25 H Creatinine 0.99 Estim Creat Clear Calc 66 Estimated GFR > 60 Glucose 152 H Lactic Acid 0.9 Uric Acid 3.5 Calcium 9.1 Total Bilirubin 0.4 AST 28 ALT 26 Alkaline Phosphatase 79 C-Reactive Protein 3.9 H Total Protein 7.6 Albumin 4.4 Procalcitonin 0.0 Nasal MRSA (PCR) Not detected 07/11/25 05:05 WBC 11.0 H RBC 3.83 L Hgb 12.0 L Hct 36.2 L MCV 94.5 MCH 31.3 MCHC 33.1 RDW 13.1 Plt Count 214 MPV 9.9 Immature Gran % (Auto) 0.4 Neut % (Auto) 61.3 Lymph % (Auto) 25.8 [place] % (Auto) 11.7 H Eos % (Auto) 0.4 Baso % (Auto) 0.4 Lymph # (Auto) 2.84 [place] # (Auto) 1.3 H Eos # (Auto) 0.0 Baso # (Auto) 0.0 Abs Immat Gran (auto) 0.04 H Absolute Neuts (auto) 6.8 H Absolute Nucleated RBC 0.000 Nucleated RBC % 0.0 ESR Sodium Potassium Chloride Carbon Dioxide Anion Gap BUN Creatinine Estim Creat Clear Calc Estimated GFR Glucose Lactic Acid Uric Acid Calcium Total Bilirubin AST ALT Alkaline Phosphatase C-Reactive Protein Total Protein Albumin Procalcitonin Nasal MRSA (PCR) Quality VTE Prophylaxis VTE prophylaxis: pharmacologic ordered (Lovenox 40 mg subQ daily.)
[2025-07-11] MEDS: ceFAZolin 2 GM in SODIUM CHLORIDE 0.9% IV 50 ML 100 ML IVPB ×2 (14:50→22:00)
[2025-07-11] MEDS: oxyCODONE HCL (*CRX) 5 MG TAB IR 10 MG PO ×2 (14:52→22:00)
[2025-07-11 21:55] VITALS: BP 134/65; PULSE 79; RESP 18; TEMP 36.6; O2SAT 96
[2025-07-12] MEDS: oxyCODONE HCL (*CRX) 5 MG TAB IR 10 MG PO ×2 (04:04→09:55)
[2025-07-12 04:55] VITALS: BP 135/60; PULSE 62; RESP 18; O2SAT 94
[2025-07-12 04:59] LABS: Hematocrit 38.2 % (42.0-52.0); Hemoglobin 12.8 g/dL (14.0-18.0); Mean Corpuscular HGB Conc 33.5 g/dl (32-36); Mean Corpuscular Hemoglobin 31.4 pg (26-34); Mean Corpuscular Volume 93.9 fl (80-100); Platelet Count Result 240 k/mm3 (150-375); Red Blood Count 4.07 M/mm3 (4.6-6.20); White Blood Count 9.3 K/mm3 (4.5-10.0)
[2025-07-12 05:37] LABS: Anion Gap 4 mmol/L (4-12); Blood Urea Nitrogen 18 mg/dL (9-20); Calcium 8.9 mg/dL (8.4-10.2); Carbon Dioxide 28 mmol/L (22-30); Chloride 104 mmol/L (98-107); Estimated CRCL calculation 88 ml/min; Estimated Glomerular Filt Rate > 60; Glucose 101 mg/dL (65-110); Magnesium 2.2 mg/dL (1.6-2.3); Potassium 3.8 mmol/L (3.4-5.0); Sodium 136 mmol/L (137-145)
[2025-07-12] MEDS: ceFAZolin 2 GM in SODIUM CHLORIDE 0.9% IV 50 ML 100 ML IVPB (06:02)
[2025-07-12 09:50] VITALS: PULSE 82
[2025-07-12] MEDS: ATORVASTATIN 20 MG TABLET PO (09:50)
[2025-07-12] MEDS: LOSARTAN POTASSIUM 50 MG TABLET PO (09:50)
[2025-07-12] MEDS: DULoxetine HCL 60 MG CAPSULE.DR PO (09:50)
[2025-07-12] MEDS: DOCUSATE SODIUM 100 MG CAPSULE PO (09:51)
[2025-07-12 12:30] LABS: CRP 4.9 mg/dL (<1.0)
--- NOTE | 2025-07-12 13:15 | PM.DS ---
DS: Admitting Diagnosis Discharge Date 07/12/2025 Admitting Diagnosis Right wrist pain DS: Discharge Diagnosis Discharge Diagnosis (1) Septic joint of right wrist: Qualifiers: Septic arthritis organism: due to unspecified organism Qualified Code(s): M00.9 - Pyogenic arthritis, unspecified Code(s): M00.9 - Pyogenic arthritis, unspecified Status: Acute (2) Sepsis: Qualifiers: Sepsis type: sepsis due to unspecified organism Sepsis acute organ dysfunction status: without acute organ dysfunction Qualified Code(s): A41.9 - Sepsis, unspecified organism Code(s): A41.9 - Sepsis, unspecified organism Status: Acute (3) Pseudogout: Code(s): M11.20 - Other chondrocalcinosis, unspecified site Status: Acute (4) Pain in right wrist: Code(s): M25.531 - Pain in right wrist Status: Acute (5) Chronic pain syndrome: Code(s): G89.4 - Chronic pain syndrome Status: Acute (6) Essential hypertension: Code(s): I10 - Essential (primary) hypertension Status: Acute (7) Tobacco abuse: Code(s): Z72.0 - Tobacco use Status: Acute (8) BPH (benign prostatic hyperplasia): Qualifiers: Lower urinary tract symptom presence: symptoms present Lower urinary tract symptom detail: urinary frequency Qualified Code(s): N40.1 - Benign prostatic hyperplasia with lower urinary tract symptoms; R35.0 - Frequency of micturition Code(s): N40.0 - Benign prostatic hyperplasia without lower urinary tract symptoms Status: Acute Plan Patient has fever with pain and swelling of the right wrist concerning for possible septic arthritis versus pseudogout flare. Patient does fit mild SIRS criteria with temperature of 100.8?, leukocytosis and tachycardia with heart rate up to 100 in the setting of possible infection meets criteria for sepsis. Patient received 1 L fluid bolus in the ER I requested the patient received additional IV fluids he is getting an additional 1 L at 500 mL an hour. ESR is normal but CRP is mildly elevated suggesting infection or inflammation. Will check procalcitonin and lactic acid as well as blood cultures. Orthopedic surgery was consulted from the ER and recommended patient be started on Ancef. Patient will be made NPO at midnight for possible surgical procedure. Given that the patient will have increased doses of pain medications will start patient on scheduled Colace. Will also add Narcan as needed if symptoms of over sedation. Patient has chronic hypertension but blood pressures are stable. Will continue home antihypertensives. Patient does continue to smoke and states that he has been trying to quit he will frequently quit smoking for 2 or 3 days and then will slip up in smoke a pack a day for a couple of weeks before stopping again. He does not desire to have nicotine patch at this time. 10 minutes was spent in tobacco cessation education. The patient does have history of BPH but states that he feels like the medications he was on for BPH cause more symptoms. He does not want to be started on a different medication for his prostate. Will monitor for signs of possible urinary retention given increased narcotic use. Patient presented with pain in his right wrist without any trauma, seen by an orthopedics and suspect patient has pseudogout as patient had a similar episode in left wrist in 2019 and unlikely septic arthritis and does not need any surgical intervention, patient uric acid levels are normal, being treated with pain medication and his symptoms are improving. will monitor and possible discharge patient home tomorrow. DS: Summary Hospital Course Hospital Course: Patient has fever with pain and swelling of the right wrist concerning for possible septic arthritis versus pseudogout flare. Patient does fit mild SIRS criteria with temperature of 100.8?, leukocytosis and tachycardia with heart rate up to 100 in the setting of possible infection meets criteria for sepsis. Patient received 1 L fluid bolus in the ER I requested the patient received additional IV fluids he is getting an additional 1 L at 500 mL an hour. ESR is normal but CRP is mildly elevated suggesting infection or inflammation. Will check procalcitonin and lactic acid as well as blood cultures. Orthopedic surgery was consulted from the ER and recommended patient be started on Ancef. Patient will be made NPO at midnight for possible surgical procedure. patient is clinically stable and pain has improved, his ESR is 49 and CRP is 4.9 called the surgeon and gave the result, he okay discharge and will follow up in the clinic on July 15. Time Spent with Patient Time attestation: Total time spent providing and/or coordinating discharge services: Exam Narrative: Patient is comfortable, NAD HEENT: eyes are clear and none icteric LUNGS:CTA HEART: RR S1S2 ABD: BS+, Soft and nontender Lower extremities: no edema SKIN: nonjaundiced Neuro: grossly intact. DS: Data Data Completed and Pending Labs on day of discharge: Labs from last 24 hours 07/12/25 04:36 WBC 9.3 RBC 4.07 L Hgb 12.8 L Hct 38.2 L MCV 93.9 MCH 31.4 MCHC 33.5 RDW 12.7 Plt Count 240 MPV 10.4 ESR 49 H Sodium 136 L Potassium 3.8 Chloride 104 Carbon Dioxide 28 Anion Gap 4 BUN 18 Creatinine 0.73 Estim Creat Clear Calc 88 Estimated GFR > 60 Glucose 101 Calcium 8.9 Magnesium 2.2 C-Reactive Protein 4.9 H Discharge Plan Discharge Attending physician on discharge: Lorrie Loco Consulting providers: Fidencio Pennington; Riley Lindsay; Jaycob Shepherd Discharging Clinician: Danica Gaines Patient Disposition: Home Activity: as tolerated Diet: heart healthy Discharge Instructions: Patient to follow up with his orthopedic surgeon on this June for follow up, patient to follow up with his primary care provider as soon as possible, patient is instructed if any symptoms worsen to go to nearest ER Patient Instructions: Antibiotic Form, How to Stop Smoking (GEN) Patient Language: Slovenian Stand Alone Forms: General Discharge Information Follow-up/Referrals: Fidencio Pennington MD [Physician, Orthopedics] Leandro Pardo DO [Primary Care Provider, Internal Medicine] Discharge Medications: New cephalexin 750 mg capsule 750 mg PO Q8H Qty: 15 0RF Continued oxycodone 10 mg tablet 10 mg PO TID Gabapentin, Diclofenac, Ibuprophen, Pentoxifylline, Lidocaine, Amptriptline, cyclobenzaprine Cream See Rx Instructions transdermal .COMPLEX PRN (Reason: neuropathy) Rx Instructions: apply to feet as needed for neuropathy pain transdermally PRN; Rub on affected area atorvastatin [Lipitor] 20 mg tablet 20 mg PO DAILY Qty: 90 3RF naloxone [Narcan] 4 mg/actuation spray,non-aerosol 4 mg intranasal PRN duloxetine 60 mg capsule,delayed release(DR/EC) See Rx Instructions .ROUTE .COMPLEX Qty: 90 1RF Dose Instruction: TAKE 1 CAPSULE BY MOUTH EVERY DAY. START WEEK 2 Rx Instructions: TAKE 1 CAPSULE BY MOUTH EVERY DAY. START WEEK 2 albuterol sulfate 90 mcg/actuation HFA aerosol inhaler See Rx Instructions .ROUTE .COMPLEX Qty: 18 3RF Dose Instruction: INHALE 1 PUFF BY MOUTH EVERY 4 HOURS Rx Instructions: INHALE 1 PUFF BY MOUTH EVERY 4 HOURS losartan 50 mg tablet See Rx Instructions .ROUTE .COMPLEX Qty: 90 1RF Dose Instruction: TAKE 1 TABLET BY MOUTH EVERY DAY Rx Instructions: TAKE 1 TABLET BY MOUTH EVERY DAY atenolol 25 mg tablet See Rx Instructions .ROUTE .COMPLEX Qty: 90 1RF Dose Instruction: TAKE 1 TABLET BY MOUTH EVERY DAY Rx Instructions: TAKE 1 TABLET BY MOUTH EVERY DAY amlodipine 10 mg tablet See Rx Instructions .ROUTE .COMPLEX Qty: 90 1RF Dose Instruction: TAKE 1 TABLEY BY MOUTH ONCE DAILY Rx Instructions: TAKE 1 TABLEY BY MOUTH ONCE DAILY Date of admission: 07/10/25 22:17 Primary Care Provider: Leandro Pardo Admitting Provider: Lorrie Loco Attending physician on admission: Danica Gaines Condition: Stable
== END 2025-07-12 13:56 | disposition home or self-care (01) ==
LOC: ANHED 21:57 → ANH3MED 07-11 01:01
PROVIDERS: Admitting Provider Internal Medicine; Emergency Provider Physician Assistant; PCP Internal Medicine; Visit Provider Family Medicine
DX: A41.9 Sepsis, unspecified organism (principal); M00.831 Arthritis due to other bacteria, right wrist; M25.531 Pain in right wrist; M11.231 Other chondrocalcinosis, right wrist; G89.4 Chronic pain syndrome; N40.1 Benign prostatic hyperplasia with lower urinary tract symptoms; R35.0 Frequency of micturition; I11.9 Hypertensive heart disease without heart failure; E78.5 Hyperlipidemia, unspecified; F11.20 Opioid dependence, uncomplicated; M54.2 Cervicalgia; M54.9 Dorsalgia, unspecified; F12.90 Cannabis use, unspecified, uncomplicated; F17.210 Nicotine dependence, cigarettes, uncomplicated
CPT/HCPCS: 36415; 73110; 80048; 80053; 83605; 83735; 84145; 84550; 85025; 85027; 85652; 86140; 87040; 87641; 96365; 96372; 96375; 96376; 99285; J0690; A9270; G0378; J1171; J1650; J1885; J2270; J2405; J7030